=== PATIENT | male | born 1950 | race Caucasian/White ===

== ENCOUNTER 2021-03-04 10:45 | Inpatient (IN) | payer OTHER, SELFPAY ==
--- NOTE | ~2021-03-04 | CT_ITS ---
EXAMINATION: CT ABDOMEN AND PELVIS WITHOUT CONTRAST CLINICAL INFORMATION: Question small bowel obstruction. COMPARISON: None TECHNIQUE: Multidetector volumetric imaging was performed from the superior aspect of the liver through the pubic symphysis. Sagittal and coronal reformatted images were obtained on the technologist's workstation. This CT examination was performed using dose optimization techniques as appropriate, variously including the following: *Automated exposure control *Adjustment of mA and/or kV according to patient size (this includes techniques or standardized protocols for targeted exams where dose is matched to indication/reason for exam; i.e. extremities or head) *Use of iterative reconstruction technique DLP: 1134 mGy-cm FINDINGS: LUNG BASES: There is mild bibasilar dependent hypoaeration. There are minimal bilateral pleural effusions. There is a very small pericardial effusion. LIVER, GALLBLADDER, AND BILIARY TREE: The liver is normal in size, shape, and attenuation. Within hepatic segment 4A (14:119), a 1.5 cm cyst is seen with precontrast Hounsfield value of 8.3 units. No biliary ductal dilatation is present. There is a large 3.7 x 2.3 cm gallstone, without gallbladder wall thickening, or obvious pericholecystic inflammatory change. PANCREAS: Unremarkable. SPLEEN: Unremarkable. ADRENAL GLANDS: Unremarkable. KIDNEYS AND URETERS: The kidneys are normal in size, shape, and attenuation. No hydronephrosis, hydroureter, or calculi seen. A 2.2 cm cyst is seen in the mid right kidney, with precontrast Hounsfield value of -3.1 units (13:32). Arising exophytically from the upper pole of the left kidney is a 2.3 cm round mass versus hemorrhagic/proteinaceous cyst, with precontrast Hounsfield value of 38.2 units. At the lower pole of the left kidney (3:37), a 9 mm cyst is seen with precontrast Hounsfield value of -7.4 units. No perinephric stranding. BLADDER: Decompressed and otherwise unremarkable. GASTROINTESTINAL TRACT: There is a large amount of stool in the rectum, suggesting possible impaction. No obstruction, free intraperitoneal air or abscess is seen. There is no focal bowel wall thickening. No significant diverticulosis or diverticulitis is seen. The vermiform appendix appears normal. ABDOMINAL WALL: There are small fat-containing bilateral inguinal hernias. LYMPH NODES: Normal. VASCULAR: There is mild aortic atherosclerotic calcification. No abdominal aortic aneurysm is seen. PELVIC VISCERA: The prostate and seminal vesicles are unremarkable. OSSEOUS STRUCTURES: There is multi-level thoracolumbar spondylosis. A small sclerotic bone island is seen posteriorly within the L3-L4 vertebral body. No acute or aggressive osseous abnormality seen. CT/CT abdomen pelvis wo con IMPRESSION: 1. Findings suggest possible rectal fecal impaction. No bowel obstruction, free intracranial air or abscess is seen. This no focal bowel wall thickening. No appendicitis or diverticulitis is seen. 2. No urinary calculus or obstructive uropathy is seen bilaterally. 3. There are low-attenuation bilateral renal cysts, and a further 2.3 cm intermediate attenuation mass versus cyst is seen arising exophytically from the upper pole of the left kidney. Recommend further evaluation with ultrasound or MRI to characterize as cystic or solid and exclude the possibility of neoplasm. 4. There is cholelithiasis. 5. No abdominopelvic mass, free fluid or lymphadenopathy is seen. 6. There are minimal bilateral pleural effusions, and a very small pericardial effusion is seen.
--- NOTE | ~2021-03-04 | CT_ITS ---
EXAMINATION: CT HEAD WITHOUT CONTRAST CLINICAL INFORMATION: Question seizure. COMPARISON: CT brain dated 04/06/2017. TECHNIQUE: Contiguous axial imaging was performed from the skull base to vertex without intravenous administration of contrast. Multiplanar reformatted images are submitted. This CT examination was performed using dose optimization techniques as appropriate, variously including the following: *Automated exposure control *Adjustment of mA and/or kV according to patient size (this includes techniques or standardized protocols for targeted exams where dose is matched to indication/reason for exam; i.e. extremities or head) *Use of iterative reconstruction technique DLP: 630 mGy-cm FINDINGS: There is no evidence of acute intracranial hemorrhage or territorial infarction. No abnormal mass effect or midline shift is seen. [place] to white matter differentiation is well preserved. No extra-axial fluid collections are identified. There is proportionate mild ventriculomegaly and mild sulcal widening, commensurate with advanced age. There is mild patchy low attenuation change in the periventricular white matter spaces. The osseous structures and soft tissues are normal. There is mild mucosal thickening of the left sphenoid sinus chamber. The mastoid air cells are well aerated and clear. CT/CT head/brain wo con IMPRESSION: 1. No acute intracranial pathology. 2. There is mild patchy low attenuation change in the periventricular white matter spaces, commonly associated with chronic microangiopathy. 3. There is mild sphenoid sinusitis.
--- NOTE | ~2021-03-04 | CT_ITS ---
EXAMINATION: CT CHEST WITHOUT CONTRAST CLINICAL INFORMATION: Clinical question of pneumonia. COMPARISON: Chest radiograph dated 05/16/2018. TECHNIQUE: Multidetector volumetric CT imaging of the chest was done. Axial MIP volume rendering provided. Sagittal and coronal reformatted images were obtained. This CT examination was performed using dose optimization techniques as appropriate, variously including the following: *Automated exposure control *Adjustment of mA and/or kV according to patient size (this includes techniques or standardized protocols for targeted exams where dose is matched to indication/reason for exam; i.e. extremities or head) *Use of iterative reconstruction technique DLP: 1134 mGy-cm FINDINGS: NURSE RN BSN: The lungs are grossly clear. LUNGS: Within the superior segment of the right lower lobe (2:227), a 3 mm noncalcified nodule is seen. Within the anterior segment of the left upper lobe (9:75), there is a small grouping of 2-3 mm noncalcified nodules, with tree-in-bud arrangement. There is no mass, focal infiltrate or groundglass opacity. There are foci of linear scar/subsegmental atelectasis within the bilateral lower lobes and, to a lesser extent, centrally within the left upper lobe. No generalized increase is seen in peripheral interlobular septal markings. No significant bleb or bullous formation is seen. There is mild small airway thickening. The central airways appear patent. MEDIASTINUM: The thyroid is unremarkable. No thoracic aortic aneurysm is seen. There is mild atherosclerotic calcification of the thoracic aorta. No mediastinal or hilar lymphadenopathy is seen. There is a very small pericardial effusion. PLEURA: There are trace bilateral pleural effusions. No pleural mass or thickening is seen. AXILLA: No lymphadenopathy. OSSEOUS STRUCTURES: There is multi-level marked thoracic spondylosis, with an appearance suggesting possible DISH (diffuse idiopathic skeletal hyperostosis). No acute or aggressive osseous abnormality seen. CT/CT chest wo con IMPRESSION: 1. Tiny bilateral noncalcified lung nodules are seen, as above. Nodules within the anterior segment of the left upper lobe show a tree-in-bud arrangement, and there is small airway thickening, together suggesting small airways disease related to an infectious or inflammatory etiology. Please correlate clinically. According to the UPDATED 2017 Fleischner Society recommendations, the advised follow-up imaging for solid nodules < 6 mm is: LOW RISK PATIENT: No routine follow-up. HIGH RISK PATIENT: Optional CT at 12 months. 2. There are bilateral foci of linear scar/subsegmental atelectasis, for which continued attention on follow-up is recommended. 3. No thoracic lymphadenopathy is seen. There are trace bilateral pleural effusions. 4. Skeletal findings suggest possible DISH.
[2021-03-04 10:50] VITALS: BP 116/72; PULSE 72; RESP 18; O2SAT 95; BMI 20.5
[2021-03-04 11:13] LABS: Glucose, Whole Blood 144 mg/dL (60-115)
--- NOTE | 2021-03-04 11:27 | ECG_ITS ---
Test Reason : SEIZURE Blood Pressure : / mmHG Vent. Rate : 059 BPM Atrial Rate : 059 BPM P-R Int : 172 ms QRS Dur : 144 ms QT Int : 462 ms P-R-T Axes : 036 074 055 degrees QTc Int : 457 ms Sinus bradycardia Right bundle branch block Abnormal ECG When compared with ECG of 26-MAR-2020 23:46, No significant change was found Referred By: Ralph Campos Electronically Signed By:MIGNON CORRALES
--- NOTE | 2021-03-04 11:31 | ED.GENADULT ---
HPI - General Adult General Chief complaint: Seizure Stated complaint: seizure Time Seen by Provider: 03/04/21 11:10 Source: family Mode of arrival: ambulatory Limitations: no limitations History of Present Illness HPI narrative: Patient presents to the ED for possible seizure. As per daughter she states her sister informed her that while patient was is being fed patient stated violently shaking to the side and shaked even more. Daughter states ptient was talking the whole time while shaking. Daughter states patient at baseline has episode of shaking. Daughter denies father having history of seizures. Daughter states patient has severe dementia and at baseline he is totally confused and incoherent. Related Data Home Medications Medication Instructions Recorded Confirmed amlodipine 5 mg tablet 5 mg PO DAILY 03/04/21 03/04/21 cholecalciferol (vitamin D3) 50 50 mcg PO DAILY 03/04/21 03/04/21 mcg (2,000 unit) tablet cyanocobalamin (vitamin B-12) 500 500 mcg PO DAILY 03/04/21 03/04/21 mcg tablet donepezil 10 mg tablet 10 mg PO DAILY 03/04/21 03/04/21 lorazepam 0.5 mg tablet 0.5 mg PO DAILY PRN 03/04/21 03/04/21 melatonin 10 mg tablet 10 mg PO DAILY PRN 03/04/21 03/04/21 melatonin 5 mg tablet 10 mg PO BEDTIME 03/04/21 03/04/21 mirtazapine 30 mg tablet 30 mg PO BEDTIME 03/04/21 03/04/21 polyethylene glycol 3350 17 17 g PO DAILY PRN 03/04/21 03/04/21 gram/dose oral powder (Miralax) quetiapine 25 mg tablet 25 mg PO TID PRN 03/04/21 03/04/21 sertraline 20 mg/mL oral 100 mg PO DAILY 03/04/21 03/04/21 concentrate (Zoloft) simvastatin 40 mg tablet 20 mg PO DAILY 03/04/21 03/04/21 Previous Rx's Medication Instructions Recorded amoxicillin 875 mg-potassium 1 tab PO Q12H 5 Days #10 tab 03/04/21 clavulanate 125 mg tablet (Augmentin) doxycycline hyclate 100 mg capsule 100 mg PO BID 7 Days #14 cap 03/04/21 Allergies Allergy/AdvReac Type Severity Reaction Status Date / Time No Known Allergies Allergy Verified 03/04/21 10:55 [No Known Allergies*] [facility] Past Medical History Medical History (Updated 03/07/21 @ 08:13 by RAJESH Brown) Dementia Hyperlipidemia Hypertension Social History Social History Household Members: Spouse and Family Housing: Apartment Do you presently have visiting nurse or other home services: Yes (per daughter, forestry hunter and house visits) Patient Tobacco Use Status: Never used Tobacco Use of substances other than those prescribed or required for medical reasons: No Currently Displaying Signs/Symptoms of Drug Intoxication Withdrawal: No Advance Directives: No Advance Directives Information Provided: Yes Do you have thoughts of harming others: None Do you have a plan to hurt others: No Plan Recently lost weight without trying: Unsure Eating poorly because of decreased appetite: No Nutrition Risks: On aspiration precautions service: Yes Current occupational status: retired Physical Exam Vital Signs: Vital Signs: Last Vital Signs Temp 97.3 F 03/07/21 03:05 Pulse 71 03/07/21 03:05 Resp 16 03/07/21 03:05 BP 140/79 H 03/07/21 03:05 Pulse Ox 95 03/07/21 03:05 Body Mass Index 20.5 Const: Other: dementia General: cooperative, healthy appearing, comfortable and no acute distress HENMT: Head: Yes normal to inspection, Yes No palpable skull fracture present, Yes normocephalic and Yes atraumatic Eyes: General: appearance normal, both eyes and all related structures Neck: Neck: Yes normal visual inspection, Yes full ROM, Yes no lymphadenopathy, Yes no meningeal signs, Yes trachea midline, Yes supple and No tender Chest: Chest palpation & inspection: normal inspection of the chest and normal palpation of entire chest wall Resp: Effort & Inspection: normal respiratory effort and able to speak in complete sentences Auscultation: clear to auscultation bilaterally Cardio: Jugular venous distension: no JVD Heart sounds: S1 normal heart sound present and S2 normal heart sound present GI: Inspection: Yes normal to inspection and No abdominal wall ecchymosis Palpation (GI): Soft to palpation, not firm, nontender and no guarding : General: No CVA tenderness and Yes no CVA tenderness Back/Spine/Pelvis: Back: no CVA tenderness, No CVA tenderness and No back tenderness Skin: General skin exam: no rashes or lesions noted and elasticity normal Neuro: Other: At baseline patient is confused and incorherent. General: no meningeal signs and CN's II-XI intact bilaterally Extrem: General: Yes normal to inspection and Yes full ROM Psych: Other: severe dementia Appearance: grossly normal and well kempt Course Course Course Narrative: Patient will have medical evaluation, but very unlikely patient had a seizure. patient was shaking while awake and family states patient at baseling usually shakes. Reevaluation(s) Reevaluation #1: EKG is negative negative for stemi. Head CT came back negatvie. UA negative for UTI. Troponin is negative. Electrolytes are normal. Patient has WBC of only 12. Patient never had seizure during ED visit. patient is at baseline mentally in the ED as per family. Chest CT shows pneunibua and Abdominal CT scan shows fecal impaction. Case was discussed with Dr. Hall, hospitatlist, and he states patient does not need to be admitted and does not believe patient had seizure. He states history and physical exam does not indicate seiure. He states patient can be discharged with PO antibiotics for pneumonia. Will do fecal disimpaciton. Time: 14:31 Reevaluation #2: Nurse informed me that patient had a large bowel movment after abdominal CT scan was done. Patient will be discharged Time: 15:02 Reevaluation #3: Patient had a seizure before discharge and was given ativan and placed on oxygen. Hospitalist informed and accepted case for admission. lacitc acid not due to pneumonia, but due to lactic being drawn after patient had seizure. Time: 15:33 Medical Decision Making [facility] Narrative Medical decision making narrative: Pneumonia, Seizure Lab Data Result diagrams: 03/07/21 06:11 03/07/21 06:11 Labs: Lab Results 03/04/21 03/04/21 03/04/21 Range/Units 11:10 11:53 12:54 WBC 12.2 H (4.8-10.8) X10*3/uL RBC 5.50 (4.60-5.80) X10*6/uL Hgb 15.1 (14.0-18.0) g/dl Hct 44.9 (42-52) % MCV 81.6 (80-98) fL MCH 27.5 (27.0-33.0) pg MCHC 33.6 (31.0-36.0) g/dl RDW 15.2 (11.0-16.0) % Plt Count 202 (160-400) X10*3/uL MPV 9.5 (9.4-12.4) fL Immature Gran % (Auto) 1.1 H (0.0-0.4) % Neut % (Auto) 89.3 H (45-73) % Lymph % (Auto) 5.6 L (20-40) % [place] % (Auto) 3.6 (2-11) % Eos % (Auto) 0.2 (0-4) % Baso % (Auto) 0.2 (0-2) % Lymph # (Auto) 0.7 L (1.2-4.9) X10*3/uL [place] # (Auto) 0.4 (0.1-1.2) X10*3/uL Eos # (Auto) 0.0 (0.0-0.4) X10*3/uL Baso # (Auto) 0.0 (0.0-0.2) X10*3/uL Abs Immat Gran (auto) 0.13 H (0.00-0.03) X10*3/uL Absolute Neuts (auto) 10.9 H (2.0-8.3) X10*3/uL Absolute Nucleated RBC 0.000 (0.0-0.012) X10*3/uL Nucleated RBC % (auto) 0.0 (0.0-0.2) /100WBC Sodium (135-145) mmol/L Potassium (3.3-5.1) mmol/L Chloride (96-108) mmol/L Carbon Dioxide (22-29) mmol/L Anion Gap (12-20) BUN (9-16) mg/dL Creatinine (0.5-1.4) mg/dL Estim Creat Clear Calc Estimated GFR POC Glucose 144 H (60-115) mg/dL Random Glucose (60-115) mg/dL Lactic Acid (0.5-2.0) mmol/L Calcium (8.4-10.2) mg/dL Magnesium (1.6-2.6) mg/dL Total Bilirubin (0.0-1.0) mg/dL Direct Bilirubin (0.0-0.5) mg/dL AST (5-37) U/L ALT (0-40) U/L Alkaline Phosphatase (39-117) U/L Total Creatine Kinase (38-174) U/L Troponin I High Sens (<3.5-35.0) ng/L Total Protein (6.5-8.0) g/dL Albumin (3.5-5.0) g/dL Urine Color STRAW Urine Appearance CLEAR Urine pH 6.0 (5.0-8.0) Ur Specific [place] >= 1.030 H (1.005-1.025) Urine Protein 1+ H (NEG-TRACE) MG/DL Urine Glucose (UA) NEG (NEG) MG/DL Urine Ketones NEG (NEG) MG/DL Urine Blood TRACE (NEG) Urine Nitrite NEG (NEG) Ur Leukocyte Esterase NEG (NEG) Urine RBC 0-2 (0) /HPF Urine WBC 0-2 (0-4) /HPF Ur Squamous Epith Cells NONE /LPF Amorphous Sediment 3+ /LPF Urine Bacteria NONE /LPF Urine Mucus TRACE /LPF COVID-19 ([facility]) (Negative) COVID-19 Clin Com 03/04/21 03/04/21 03/04/21 Range/Units 12:54 12:54 12:54 WBC (4.8-10.8) X10*3/uL RBC (4.60-5.80) X10*6/uL Hgb (14.0-18.0) g/dl Hct (42-52) % MCV (80-98) fL MCH (27.0-33.0) pg MCHC (31.0-36.0) g/dl RDW (11.0-16.0) % Plt Count (160-400) X10*3/uL MPV (9.4-12.4) fL Immature Gran % (Auto) (0.0-0.4) % Neut % (Auto) (45-73) % Lymph % (Auto) (20-40) % [place] % (Auto) (2-11) % Eos % (Auto) (0-4) % Baso % (Auto) (0-2) % Lymph # (Auto) (1.2-4.9) X10*3/uL [place] # (Auto) (0.1-1.2) X10*3/uL Eos # (Auto) (0.0-0.4) X10*3/uL Baso # (Auto) (0.0-0.2) X10*3/uL Abs Immat Gran (auto) (0.00-0.03) X10*3/uL Absolute Neuts (auto) (2.0-8.3) X10*3/uL Absolute Nucleated RBC (0.0-0.012) X10*3/uL Nucleated RBC % (auto) (0.0-0.2) /100WBC Sodium 145 (135-145) mmol/L Potassium 3.5 (3.3-5.1) mmol/L Chloride 113 H (96-108) mmol/L Carbon Dioxide 22 (22-29) mmol/L Anion Gap 14 (12-20) BUN 21 H (9-16) mg/dL Creatinine 1.01 (0.5-1.4) mg/dL Estim Creat Clear Calc 53.1 Estimated GFR > 60 POC Glucose (60-115) mg/dL Random Glucose 117 H (60-115) mg/dL Lactic Acid (0.5-2.0) mmol/L Calcium 9.2 (8.4-10.2) mg/dL Magnesium 2.4 (1.6-2.6) mg/dL Total Bilirubin 0.3 (0.0-1.0) mg/dL Direct Bilirubin 0.2 (0.0-0.5) mg/dL AST 16 (5-37) U/L ALT 19 (0-40) U/L Alkaline Phosphatase 110 (39-117) U/L Total Creatine Kinase 45 (38-174) U/L Troponin I High Sens (<3.5-35.0) ng/L Total Protein 7.0 (6.5-8.0) g/dL Albumin 4.2 (3.5-5.0) g/dL Urine Color Urine Appearance Urine pH (5.0-8.0) Ur Specific [place] (1.005-1.025) Urine Protein (NEG-TRACE) MG/DL Urine Glucose (UA) (NEG) MG/DL Urine Ketones (NEG) MG/DL Urine Blood (NEG) Urine Nitrite (NEG) Ur Leukocyte Esterase (NEG) Urine RBC (0) /HPF Urine WBC (0-4) /HPF Ur Squamous Epith Cells /LPF Amorphous Sediment /LPF Urine Bacteria /LPF Urine Mucus /LPF COVID-19 ([facility]) (Negative) COVID-19 Clin Com 03/04/21 03/04/21 03/04/21 Range/Units 12:54 15:51 15:56 WBC (4.8-10.8) X10*3/uL RBC (4.60-5.80) X10*6/uL Hgb (14.0-18.0) g/dl Hct (42-52) % MCV (80-98) fL MCH (27.0-33.0) pg MCHC (31.0-36.0) g/dl RDW (11.0-16.0) % Plt Count (160-400) X10*3/uL MPV (9.4-12.4) fL Immature Gran % (Auto) (0.0-0.4) % Neut % (Auto) (45-73) % Lymph % (Auto) (20-40) % [place] % (Auto) (2-11) % Eos % (Auto) (0-4) % Baso % (Auto) (0-2) % Lymph # (Auto) (1.2-4.9) X10*3/uL [place] # (Auto) (0.1-1.2) X10*3/uL Eos # (Auto) (0.0-0.4) X10*3/uL Baso # (Auto) (0.0-0.2) X10*3/uL Abs Immat Gran (auto) (0.00-0.03) X10*3/uL Absolute Neuts (auto) (2.0-8.3) X10*3/uL Absolute Nucleated RBC (0.0-0.012) X10*3/uL Nucleated RBC % (auto) (0.0-0.2) /100WBC Sodium (135-145) mmol/L Potassium (3.3-5.1) mmol/L Chloride (96-108) mmol/L Carbon Dioxide (22-29) mmol/L Anion Gap (12-20) BUN (9-16) mg/dL Creatinine (0.5-1.4) mg/dL Estim Creat Clear Calc Estimated GFR POC Glucose (60-115) mg/dL Random Glucose (60-115) mg/dL Lactic Acid 12.4 H* (0.5-2.0) mmol/L Calcium (8.4-10.2) mg/dL Magnesium (1.6-2.6) mg/dL Total Bilirubin (0.0-1.0) mg/dL Direct Bilirubin (0.0-0.5) mg/dL AST (5-37) U/L ALT (0-40) U/L Alkaline Phosphatase (39-117) U/L Total Creatine Kinase (38-174) U/L Troponin I High Sens < 3.5 (<3.5-35.0) ng/L Total Protein (6.5-8.0) g/dL Albumin (3.5-5.0) g/dL Urine Color Urine Appearance Urine pH (5.0-8.0) Ur Specific [place] (1.005-1.025) Urine Protein (NEG-TRACE) MG/DL Urine Glucose (UA) (NEG) MG/DL Urine Ketones (NEG) MG/DL Urine Blood (NEG) Urine Nitrite (NEG) Ur Leukocyte Esterase (NEG) Urine RBC (0) /HPF Urine WBC (0-4) /HPF Ur Squamous Epith Cells /LPF Amorphous Sediment /LPF Urine Bacteria /LPF Urine Mucus /LPF COVID-19 ([facility]) Negative (Negative) COVID-19 Clin Com See Note ECG Data Interpretation: Sinus Bradycardia. Right Bundle Branch Block. Discharge Plan Discharge Clinical Impression: Pneumonia, Seizure Patient Disposition: Admitted As Inpatient Interventions: Admission Worksheet (ED) Last Done: 03/04/21 18:26 Discharge Date/Time: 03/04/21 18:27
[2021-03-04 11:34] VITALS: BP 112/74; PULSE 66; RESP 18; O2SAT 100
--- NOTE | 2021-03-04 11:56 | PC.NURSE ---
patient incontinent of stool and urine- with help of technical support internship patient was cleaned, repositioned and bed sheets changed
[2021-03-04 12:14] LABS: Glucose Urine UA NEG (NEG); Leukocyte Esterase Urine NEG (NEG); Nitrite Urine NEG (NEG); Specific Gravity - Urine >= 1.030 (1.005-1.025); UACC Culture Trigger NO; Urine Blood TRACE (NEG); Urine Ketones NEG (NEG); Urine Protein 1+ MG/DL (NEG-TRACE)
[2021-03-04 12:17] LABS: Appearance Urine CLEAR; Color Urine STRAW
[2021-03-04 12:24] LABS: Amorphous Sediment Urine 3+ /LPF; Mucus Urine TRACE /LPF; RBC Urine 0-2 /HPF (0); WBC Urine 0-2 /HPF (0-4)
[2021-03-04 12:58] LABS: MANUAL DIFF FLAG NO
[2021-03-04 13:00] LABS: Basophils Percent Auto 0.2 % (0-2); Eosinophils Percent Auto 0.2 % (0-4); Hematocrit 44.9 % (42-52); Hemoglobin 15.1 g/dl (14.0-18.0); Imm Gran Abs Auto 0.13 X10*3/uL (0.00-0.03); Imm Gran Pct Auto 1.1 % (0.0-0.4); Lymphocytes Absolute Auto 0.7 X10*3/uL (1.2-4.9); Lymphocytes Percent Auto 5.6 % (20-40); Mean Corpuscular HGB Conc 33.6 g/dl (31.0-36.0); Mean Corpuscular Hemoglobin 27.5 pg (27.0-33.0); Mean Corpuscular Volume 81.6 fL (80-98); Mean Platelet Volume 9.5 fL (9.4-12.4); Monocytes Absolute Auto 0.4 X10*3/uL (0.1-1.2); Monocytes Percent Auto 3.6 % (2-11); Neutrophils Absolute Auto 10.9 X10*3/uL (2.0-8.3); Neutrophils Percent Auto 89.3 % (45-73); Platelet Count 202 X10*3/uL (160-400); Red Cell Distribution Width 15.2 % (11.0-16.0); White Blood Count 12.2 X10*3/uL (4.8-10.8)
[2021-03-04 13:39] LABS: Anion Gap 14 (12-20); Blood Urea Nitrogen 21 mg/dL (9-16); Calcium 9.2 mg/dL (8.4-10.2); Carbon Dioxide 22 mmol/L (22-29); Chloride 113 mmol/L (96-108); Creatinine Clr Calc Pharmacy 53.1; Estimated Glomerular Filt Rate > 60; Glucose Random 117 mg/dL (60-115); Potassium 3.5 mmol/L (3.3-5.1); Sodium 145 mmol/L (135-145)
[2021-03-04 13:40] LABS: Alanine Aminotransferase 19 U/L (0-40); Albumin Level 4.2 g/dL (3.5-5.0); Alkaline Phosphatase 110 U/L (39-117); Aspartate Amino Transferase 16 U/L (5-37); Bilirubin Direct 0.2 mg/dL (0.0-0.5); Bilirubin Total 0.3 mg/dL (0.0-1.0)
[2021-03-04 13:42] LABS: Magnesium 2.4 mg/dL (1.6-2.6)
[2021-03-04 13:45] LABS: Troponin-I High Sensitivity < 3.5 ng/L (<3.5-35.0)
[2021-03-04 15:25] VITALS: BP 173/77; PULSE 107; RESP 22; O2SAT 97
[2021-03-04] MEDS: LORazepam 2 MG/ML VIAL IVPUSH (15:27)
[2021-03-04] MEDS: cefTRIAXone sodium 1 GM in 0.9 % Sodium Chloride 50 ML IV (16:03)
[2021-03-04 16:20] LABS: COVID-19 Test Negative (Negative); IDNOW Serial# 9DD0AD1C
[2021-03-04 16:21] LABS: Lactic Acid 12.4 mmol/L (0.5-2.0)
--- NOTE | 2021-03-04 16:27 | P.HPHOSP_ITS ---
History of Present Illness Date of Service: 03/04/21 Chief Complaint: seizure 70 year old man presenting after seizure home. According to the patient's daughter who was present during the interview the patient was being fed by his other daughter and suddenly became very stiff and started shaking. She is unsure if there was any loss of bowel or bladder. He was brought to the ER. Recently had not been sick. He has a history of dementia, requires full care therefore he is unable to give any information during the interview. It appeared on CT scan that the patient had a pneumonia and he was going to be sent home on oral antibiotics however just prior to that he had a tonic-clonic seizure in the ER and was given lorazepam and Keppra. His lactic acid was elevated at 0.4 and this was likely related to the seizure as well as he tachycardia tachypnea and hypertension at that time. Just prior to that the patient had not presented with any fever tachycardia or hypertension. He was also started on Rocephin and azithromycin for seizure. Will be admitted for further management and treatment of acute seizure and community-acquired pneumonia. Review of Systems Review of Systems: Yes Unobtainable due to mental status [facility] Medical History (Updated 03/04/21 @ 16:32 by Latonya Smith NP) Dementia Hyperlipidemia Hypertension Pertinent family history: No cardiac disease Social History Advance Directives: No Advance Directives Information Provided: Yes Meds Allergies Allergy/AdvReac Type Severity Reaction Status Date / Time No Known Allergies Allergy Verified 03/04/21 10:55 [No Known Allergies*] Active Medications: Current Medications Generic Name Dose Route Start Last Admin Trade Name Freq PRN Reason Stop Dose Admin Azithromycin 500 mg/ Sodium 250 mls @ 125 mls/hr 03/04/21 15:39 Chloride IV 03/04/21 17:38 ONCE ONE Home Medications Medication Instructions Recorded Confirmed Last Taken Type amlodipine 5 mg tablet 5 mg PO DAILY 03/04/21 03/04/21 Unknown History cholecalciferol (vitamin D3) 50 50 mcg PO DAILY 03/04/21 03/04/21 Unknown History mcg (2,000 unit) tablet cyanocobalamin (vitamin B-12) 500 500 mcg 03/04/21 Unknown History mcg tablet donepezil 10 mg tablet 10 mg PO DAILY 03/04/21 03/04/21 Unknown History mirtazapine 30 mg tablet 30 mg PO DAILY 03/04/21 03/04/21 Unknown History quetiapine 25 mg tablet 25 mg PO DAILY 03/04/21 03/04/21 Unknown History simvastatin 40 mg tablet 40 mg PO DAILY 03/04/21 03/04/21 Unknown History Physical Exam Vital Signs and Narrative: Vital Signs: Last Vital Signs Pulse 107 H 03/04/21 15:25 Resp 22 H 03/04/21 15:25 BP 173/77 H 03/04/21 15:25 Pulse Ox 97 03/04/21 15:25 Body Mass Index 20.5 Patient lying in bed, mumbling, reaching for his oxygen mask head is normocephalic atraumatic eyes pupils are PERRLA sclera is anicteric mouth throat mucous membranes are intact and moist neck is supple no lymphadenopathy, no JVD noted lung sounds are clear to auscultation heart regular rate rhythm, clear S1, S2 positive bowel sounds, abdomen is soft, nontender neuro patient is alert, disoriented Results Labs CBC and Chem 7: 03/04/21 12:54 03/04/21 12:54 Labs: Laboratory Results - last 24 hr 03/04/21 03/04/21 03/04/21 11:10 11:53 12:54 MCV 81.6 MCH 27.5 MCHC 33.6 RDW 15.2 Plt Count 202 MPV 9.5 Immature Gran % (Auto) 1.1 H Neut % (Auto) 89.3 H Lymph % (Auto) 5.6 L [place] % (Auto) 3.6 Eos % (Auto) 0.2 Baso % (Auto) 0.2 Lymph # (Auto) 0.7 L [place] # (Auto) 0.4 Eos # (Auto) 0.0 Baso # (Auto) 0.0 Abs Immat Gran (auto) 0.13 H Absolute Neuts (auto) 10.9 H Absolute Nucleated RBC 0.000 Nucleated RBC % (auto) 0.0 Anion Gap Estim Creat Clear Calc Estimated GFR POC Glucose 144 H Random Glucose Lactic Acid Calcium Magnesium Total Bilirubin Direct Bilirubin AST ALT Alkaline Phosphatase Total Creatine Kinase Troponin I High Sens Total Protein Albumin Urine Color STRAW Urine Appearance CLEAR Urine pH 6.0 Ur Specific [place] >= 1.030 H Urine Protein 1+ H Urine Glucose (UA) NEG Urine Ketones NEG Urine Blood TRACE Urine Nitrite NEG Ur Leukocyte Esterase NEG Urine RBC 0-2 Urine WBC 0-2 Ur Squamous Epith Cells NONE Amorphous Sediment 3+ Urine Bacteria NONE Urine Mucus TRACE COVID-19 ([facility]) COVID-19 Clin Com 03/04/21 03/04/21 03/04/21 12:54 12:54 12:54 MCV MCH MCHC RDW Plt Count MPV Immature Gran % (Auto) Neut % (Auto) Lymph % (Auto) [place] % (Auto) Eos % (Auto) Baso % (Auto) Lymph # (Auto) [place] # (Auto) Eos # (Auto) Baso # (Auto) Abs Immat Gran (auto) Absolute Neuts (auto) Absolute Nucleated RBC Nucleated RBC % (auto) Anion Gap 14 Estim Creat Clear Calc 53.1 Estimated GFR > 60 POC Glucose Random Glucose 117 H Lactic Acid Calcium 9.2 Magnesium 2.4 Total Bilirubin 0.3 Direct Bilirubin 0.2 AST 16 ALT 19 Alkaline Phosphatase 110 Total Creatine Kinase 45 Troponin I High Sens Total Protein 7.0 Albumin 4.2 Urine Color Urine Appearance Urine pH Ur Specific [place] Urine Protein Urine Glucose (UA) Urine Ketones Urine Blood Urine Nitrite Ur Leukocyte Esterase Urine RBC Urine WBC Ur Squamous Epith Cells Amorphous Sediment Urine Bacteria Urine Mucus COVID-19 ([facility]) COVID-19 Clin Com 03/04/21 03/04/21 03/04/21 12:54 15:51 15:56 MCV MCH MCHC RDW Plt Count MPV Immature Gran % (Auto) Neut % (Auto) Lymph % (Auto) [place] % (Auto) Eos % (Auto) Baso % (Auto) Lymph # (Auto) [place] # (Auto) Eos # (Auto) Baso # (Auto) Abs Immat Gran (auto) Absolute Neuts (auto) Absolute Nucleated RBC Nucleated RBC % (auto) Anion Gap Estim Creat Clear Calc Estimated GFR POC Glucose Random Glucose Lactic Acid 12.4 H* Calcium Magnesium Total Bilirubin Direct Bilirubin AST ALT Alkaline Phosphatase Total Creatine Kinase Troponin I High Sens < 3.5 Total Protein Albumin Urine Color Urine Appearance Urine pH Ur Specific [place] Urine Protein Urine Glucose (UA) Urine Ketones Urine Blood Urine Nitrite Ur Leukocyte Esterase Urine RBC Urine WBC Ur Squamous Epith Cells Amorphous Sediment Urine Bacteria Urine Mucus COVID-19 ([facility]) Negative COVID-19 Clin Com See Note Imaging Radiologist's Impressions: Impressions Head CT 03/04/21 11:14 IMPRESSION: 1. No acute intracranial pathology. 2. There is mild patchy low attenuation change in the periventricular white matter spaces, commonly associated with chronic microangiopathy. 3. There is mild sphenoid sinusitis. Abdomen/Pelvis CT 03/04/21 11:26 IMPRESSION: 1. Findings suggest possible rectal fecal impaction. No bowel obstruction, free intracranial air or abscess is seen. This no focal bowel wall thickening. No appendicitis or diverticulitis is seen. 2. No urinary calculus or obstructive uropathy is seen bilaterally. 3. There are low-attenuation bilateral renal cysts, and a further 2.3 cm intermediate attenuation mass versus cyst is seen arising exophytically from the upper pole of the left kidney. Recommend further evaluation with ultrasound or MRI to characterize as cystic or solid and exclude the possibility of neoplasm. 4. There is cholelithiasis. 5. No abdominopelvic mass, free fluid or lymphadenopathy is seen. 6. There are minimal bilateral pleural effusions, and a very small pericardial effusion is seen. Chest CT 03/04/21 11:26 IMPRESSION: 1. Tiny bilateral noncalcified lung nodules are seen, as above. Nodules within the anterior segment of the left upper lobe show a tree-in-bud arrangement, and there is small airway thickening, together suggesting small airways disease related to an infectious or inflammatory etiology. Please correlate clinically. According to the UPDATED 2017 Fleischner Society recommendations, the advised follow-up imaging for solid nodules < 6 mm is: LOW RISK PATIENT: No routine follow-up. HIGH RISK PATIENT: Optional CT at 12 months. 2. There are bilateral foci of linear scar/subsegmental atelectasis, for which continued attention on follow-up is recommended. 3. No thoracic lymphadenopathy is seen. There are trace bilateral pleural effusions. 4. Skeletal findings suggest possible DISH. Assessment and Plan (1) Seizure: Status: Acute 70-year-old man with a history of dementia and mostly nonverbal admitted with new onset seizure and community-acquired pneumonia. Patient lives with his daughter and is full care. Unsure if seizure may have precipitated pna vs vice versa. Seizure. Appears to be new onset. No recent illness. Received Keppra and lorazepam in the ER Eeg Neurology consultation Seizure precautions Community-acquired pneumonia. Rocephin, azithromycin Supplemental oxygen as needed Follow cultures Lactic acidosis. Likely secondary to seizure not sepsis Received 30 mL/kg IV fluid bolus Follow Hypertension Continue amlodipine Dementia Continue Aricept Hyperlipidemia Continue statin DVT prophylaxis with Lovenox attending Dr. Servin Full code Quality Stroke Does the patient have a stroke diagnosis?: No VTE Prior VTE?: No VTE Risk Level:: Medical - moderate - high VTE Device Contraindication: Treatment Not Indicated VTE Drug Contraindication: N/A - Med Ordered
[2021-03-04] MEDS: Azithromycin 500 MG in 0.9 % Sodium Chloride 250 ML 125 MG IV (16:42)
[2021-03-04] MEDS: levETIRAcetam in NaCl (iso-os) 1,000 MG/100 ML PIGGYBACK 400 MG IV (16:42)
[2021-03-04] MEDS: 0.9 % Sodium Chloride 1,632.93 ML 1632.93 ML IV (16:47)
--- NOTE | 2021-03-04 16:49 | P.EN_ITS ---
Event Note Date of Service: 03/04/21 Event Note: Patient is status post seizure question possible, Patient is unable to provide history was taken why the assistant general manager. Physical exam: Cvs: [id number], [id number] , no murmur res: clear to auscultation ,no rhonchii or wheezing abd: no rebound or guarding ,nt, bs present. ext pulses present , no cyanosis neuro: moving extermities spontaneously Patient was given admission for seizure/question of mild pneumonia. Assessment and plan coordinated in APC note what is it Agree with plan Repeat lactic acid. Neuro check Seizure precaution Neuro evaluation Daughter has a recorded episode of a question seizure on her phone.
--- NOTE | 2021-03-04 17:07 | PC.NURSE ---
attempted to call report, nurse unable to take it per demolition worker
[2021-03-04 17:52] VITALS: BP 144/74; PULSE 105; RESP 18; TEMP 36.3; O2SAT 97
[2021-03-04 17:56] LABS: Reflex Lactate? Lactic Acid Added
[2021-03-04 18:32] LABS: Lactic Acid 2.9 mmol/L (0.5-2.0)
[2021-03-04 18:56] VITALS: BP 148/77; PULSE 89; RESP 18; TEMP 36.7; O2SAT 98
[2021-03-04 19:53] LABS: ~Lactic Acid-LAB USE ONLY 3.4 mmol/L (0.5-2.0)
[2021-03-04 19:54] LABS: Reflex Lactate? Lactic Acid Added
[2021-03-04 21:01] LABS: ~Lactic Acid-LAB USE ONLY 2.7 mmol/L (0.5-2.0)
[2021-03-04 21:15] LABS: Reflex Lactate? 2 Y
[2021-03-04 22:09] LABS: ~Lactic Acid-LAB USE ONLY 2.8 mmol/L (0.5-2.0)
[2021-03-04 22:26] LABS: Reflex Lactate? 2 Y
[2021-03-05] VITALS (7 sets, daily range): BP systolic 116–144; BP diastolic 57–97; PULSE 61–82; RESP 15–16; TEMP 36.6–37.4; O2SAT 94–100; BMI 20.5
[2021-03-05] MEDS: 0.9 % Sodium Chloride Flush 3 ML SYRINGE IVFLUSH ×4 (00:11→20:18)
[2021-03-05 06:28] LABS: MANUAL DIFF FLAG NO
[2021-03-05 06:36] LABS: Basophils Percent Auto 0.2 % (0-2); Eosinophils Percent Auto 0.2 % (0-4); Hematocrit 40.9 % (42-52); Hemoglobin 13.5 g/dl (14.0-18.0); Imm Gran Abs Auto 0.06 X10*3/uL (0.00-0.03); Imm Gran Pct Auto 0.6 % (0.0-0.4); Lymphocytes Absolute Auto 0.8 X10*3/uL (1.2-4.9); Lymphocytes Percent Auto 7.4 % (20-40); Mean Corpuscular Hemoglobin 27.5 pg (27.0-33.0); Mean Corpuscular Volume 83.3 fL (80-98); Mean Platelet Volume 9.7 fL (9.4-12.4); Monocytes Absolute Auto 0.7 X10*3/uL (0.1-1.2); Monocytes Percent Auto 6.4 % (2-11); Neutrophils Absolute Auto 9.2 X10*3/uL (2.0-8.3); Neutrophils Percent Auto 85.2 % (45-73); Platelet Count 196 X10*3/uL (160-400); Red Blood Count 4.91 X10*6/uL (4.60-5.80); Red Cell Distribution Width 15.4 % (11.0-16.0); White Blood Count 10.8 X10*3/uL (4.8-10.8)
[2021-03-05 07:23] LABS: Anion Gap 10 (12-20); Blood Urea Nitrogen 17 mg/dL (9-16); Carbon Dioxide 24 mmol/L (22-29); Chloride 115 mmol/L (96-108); Creatinine Clr Calc Pharmacy 52.6; Estimated Glomerular Filt Rate > 60; Glucose Random 92 mg/dL (60-115); Potassium 3.8 mmol/L (3.3-5.1); Sodium 145 mmol/L (135-145)
[2021-03-05 07:35] LABS: Calcium 8.6 mg/dL (8.4-10.2)
--- NOTE | 2021-03-05 09:24 | PC.NURSE ---
Skin assessment completed today. Patient has scratches to nose and face. Buttocks blanchable redness. Patient is turned every 2 hours. No other skin issues noted at this time.
--- NOTE | 2021-03-05 09:42 | P.CNNE_ITS ---
History of Present Illness Data of Consult Service Date: 03/05/21 Primary Care Provider: Unknown Physician HPI Reason for consult: New-onset seizure in a patient with dementia and pneumonia This is a 70-year-old man with advanced dementia and was unable to provide any useful information requires care by the family. He has recently developed pneumonia and was being fed by his family when he was witnessed to have a generalized tonic-clonic seizure. There is no previous history of seizures. He had a CT scan of the brain which shows age related to white matter microvascular disease but is otherwise unremarkable. He was given Ativan and Keppra. There has been no seizure recurrence. Review of Systems Review of Systems: Yes Unobtainable due to mental status PMFSH Past Medical History Medical History Dementia Hyperlipidemia Hypertension Family History Pertinent family history: No cardiac disease Social History Social History Household Members: Spouse and Family Housing: Apartment Do you presently have visiting nurse or other home services: Yes (per daughter, health information director and house visits) Patient Tobacco Use Status: Never used Tobacco Use of substances other than those prescribed or required for medical reasons: No Currently Displaying Signs/Symptoms of Drug Intoxication Withdrawal: No Advance Directives: No Advance Directives Information Provided: Yes Recently lost weight without trying: Unsure Eating poorly because of decreased appetite: No Nutrition Risks: On aspiration precautions Meds Allergies Allergy/AdvReac Type Severity Reaction Status Date / Time No Known Allergies Allergy Verified 03/04/21 10:55 [No Known Allergies*] Active Medications: Current Medications Generic Name Dose Route Start Last Admin Trade Name Freq PRN Reason Stop Dose Admin Acetaminophen 650 mg 03/04/21 16:42 Acetaminophen 325 Mg Tablet PO Q6H PRN Pain, Mild (Pain Scale 1-3) Amlodipine Besylate 5 mg 03/05/21 09:00 Amlodipine Besylate 5 Mg Tablet PO DAILY FIOR Protocol Atorvastatin Calcium 20 mg 03/05/21 09:00 Atorvastatin Calcium 20 Mg Tablet PO DAILY FIOR Donepezil HCl 10 mg 03/05/21 09:00 Donepezil Hcl 10 Mg Tablet PO DAILY FIOR Ceftriaxone Sodium 1 gm/ 50 mls @ 100 mls/hr 03/05/21 16:00 Sodium Chloride IV Q24H FIOR Azithromycin 500 mg/ Sodium 250 mls @ 125 mls/hr 03/05/21 16:00 Chloride IV Q24H FIOR Lorazepam 1 mg 03/04/21 16:42 Lorazepam 2 Mg/Ml Vial IVPUSH Q2H PRN seizure activity Ondansetron HCl 4 mg 03/04/21 16:42 Ondansetron Hcl 4 Mg/2 Ml Vial IVPUSH Q8H PRN Nausea and Vomiting Quetiapine Fumarate 25 mg 03/05/21 09:00 Quetiapine Fumarate 25 Mg Tablet PO DAILY [facility] Sodium Chloride 3 ml 03/05/21 00:00 03/05/21 00:11 0.9 % Sodium Chloride Flush 3 Ml Syringe IVFLUSH 3 ml QSHIFT [facility] Administration Vitamin D 50 mcg 03/05/21 09:00 Cholecalciferol (Vitamin D3) 25 Mcg Tablet PO DAILY [facility] Home Medications Medication Instructions Recorded Confirmed Last Taken Type amlodipine 5 mg tablet 5 mg PO DAILY 03/04/21 03/04/21 Unknown History cholecalciferol (vitamin D3) 50 50 mcg PO DAILY 03/04/21 03/04/21 Unknown History mcg (2,000 unit) tablet cyanocobalamin (vitamin B-12) 500 500 mcg PO DAILY 03/04/21 03/04/21 Unknown History mcg tablet donepezil 10 mg tablet 10 mg PO DAILY 03/04/21 03/04/21 Unknown History lorazepam 0.5 mg tablet 0.5 mg PO DAILY PRN 03/04/21 03/04/21 Unknown History melatonin 10 mg tablet 10 mg PO DAILY PRN 03/04/21 03/04/21 Unknown History melatonin 5 mg tablet 10 mg PO BEDTIME 03/04/21 03/04/21 Unknown History mirtazapine 30 mg tablet 30 mg PO BEDTIME 03/04/21 03/04/21 Unknown History polyethylene glycol 3350 17 17 g PO DAILY PRN 03/04/21 03/04/21 Unknown History gram/dose oral powder (Miralax) quetiapine 25 mg tablet 25 mg PO TID PRN 03/04/21 03/04/21 Unknown History sertraline 20 mg/mL oral 100 mg PO DAILY 03/04/21 03/04/21 Unknown History concentrate (Zoloft) simvastatin 40 mg tablet 20 mg PO DAILY 03/04/21 03/04/21 Unknown History Physical Exam Vital Signs: Vital Signs: Last Vital Signs Temp 98.4 F 03/05/21 07:31 Pulse 64 08/18/21 07:31 Resp 15 03/05/21 07:31 BP 116/62 03/05/21 07:31 Pulse Ox 100 03/05/21 07:31 Body Mass Index 20.5 Neuro: Other: Limited examination because of patient's advanced dementia. Moves all 4 extremities. No obvious focal findings. Plantar response are flexor. Neck is supple Results Labs CBC & Chem 7: 03/05/21 05:54 03/05/21 05:54 Labs: Short CBC 03/04/21 03/05/21 Range/Units 12:54 05:54 WBC 12.2 H 10.8 (4.8-10.8) X10*3/uL Hgb 15.1 13.5 L (14.0-18.0) g/dl Hct 44.9 40.9 L (42-52) % Plt Count 202 196 (160-400) X10*3/uL BMP 03/04/21 03/05/21 12:54 05:54 Sodium 145 145 Potassium 3.5 3.8 Chloride 113 H 115 H Carbon Dioxide 22 24 BUN 21 H 17 H Creatinine 1.01 1.02 Calcium 9.2 8.6 D Cardiac Enzymes 03/04/21 Range/Units 12:54 Total Creatine Kinase 45 (38-174) U/L Liver Function 03/04/21 Range/Units 12:54 Total Bilirubin 0.3 (0.0-1.0) mg/dL Direct Bilirubin 0.2 (0.0-0.5) mg/dL AST 16 (5-37) U/L ALT 19 (0-40) U/L Alkaline Phosphatase 110 (39-117) U/L Albumin 4.2 (3.5-5.0) g/dL Urine 03/04/21 Range/Units 11:53 Urine Color STRAW Urine Appearance CLEAR Urine pH 6.0 (5.0-8.0) Ur Specific [place] >= 1.030 H (1.005-1.025) Urine Protein 1+ H (NEG-TRACE) MG/DL Urine Glucose (UA) NEG (NEG) MG/DL Assessment and Plan (1) Seizure: Status: Acute New-onset of seizure, probably related to his dementia from Alzheimer's disease. Cannot rule out a small cortical infarct. He is CAT scan shows white matter microvascular disease. EEG. Continue Keppra 500 mg twice a day. Treatment of pneumonia Procedures Date of Service Date of Service: 03/05/21
--- NOTE | 2021-03-05 10:11 | MHC.SL.SWA ---
Speech Pathologist Impression: Risk of Aspiration Oral Phase Dysphagia Pharyngeal Dysphagia Risk of Aspiration Due to: Medically Fragile Reduced Cognition Weak Cough Dysphasia Diet Status: Downgrade Liquid Consistency and Strategies for Safe Swallow: Liquid Intake Recommendation: Thin Liquid Intake Strategies: Liquids by Teaspoon Only Solid Food Consistency: Dietary Recommendations: Grnd/Mech Altered (NDD2) Additional Modifications to Solid Foods: Small bites, alternating solids with liquid wash to ensure clearance. Oral Medication Intake: Crushed with Puree Compensatory Strategies and Precautions to be Taken for Safe Swallow: Oral care before/after meals Upright position during/after meals Presentation of dry spoon to complete oral cavity check and double swallow Supervision While Eating and Drinking for Safe Swallow: Total Supervision (1:1) Foods to Avoid: Avoid sticky, hard or dry foods. Patient requires 1:1 assistance for rate of ingestion, alternating small bites/sips and completing oral cavity checks. Residue is cleared with liquid wash or double swallow. Patient cannot follow commands for oral cavity check but when presented with a dry spoon, oral cavity can be checked and patient reflexively swallows again. Importance of oral care and avoiding straws were reviewed with granddaughter due to high aspiration risk. [facility] will follow-up 03/06/21 to ensure tolerance and provide education to caregiver(s). Hospital Television Rental Clerk Clinican/Clinical Fellow: No Supervisory Statement: I have reviewed and agree with the student/clinical fellow's documentation: N/A Speech Language Pathologist: Darlyn Stein M.A., [facility]
[2021-03-05] MEDS: amLODIPine Besylate 5 MG TABLET PO (10:46)
[2021-03-05] MEDS: QUEtiapine Fumarate 25 MG TABLET PO (10:47)
[2021-03-05] MEDS: Cholecalciferol (Vitamin D3) 25 MCG TABLET 50 MCG PO (10:47)
[2021-03-05] MEDS: Atorvastatin Calcium 20 MG TABLET PO (10:47)
[2021-03-05] MEDS: Donepezil HCl 10 MG TABLET PO (10:47)
--- NOTE | 2021-03-05 11:11 | MHC.CM.PN ---
spoke with pts and hcp rodrigo who expli ns that family had been working on lt placement for pt prior to admission at [facility], [place] ,prior to [facility] , explins that pt is 40% servceis connected states that pt had become aggressive and combative whil;e he was at home
--- NOTE | 2021-03-05 12:08 | PM.IMPN ---
Progress Note: A&P (1) Seizure: Status: Acute (2) Pneumonia: Status: Acute Assessment and Plan: 70-year-old man with a history of dementia and mostly nonverbal admitted with new onset seizure and community-acquired pneumonia.? Patient lives with his daughter and is full care. Unsure if seizure may have precipitated pna vs vice versa. Seizure.? Appears to be new onset. Likely secondary to dementia. Received Keppra and lorazepam in the ER, continue Keppra 500mg BID EEG pending Neurology following Seizure precautions Community-acquired pneumonia.? Rocephin, azithromycin Supplemental oxygen as needed Follow cultures Lactic acidosis.? Likely secondary to seizure not sepsis Received 30 mL/kg IV fluid bolus Follow Hypertension Continue amlodipine Dementia Continue Aricept Hyperlipidemia Continue statin DVT prophylaxis with Lovenox attending Dr. Servin Full code DISPO plan for tx to LTC Subjective Subjective Date of Service: 03/05/21 Interval History: Follow up seizure no seizure overnight Physical Exam Vital Signs: Vital Signs: Last Vital Signs Temp 98.9 F 03/05/21 11:18 Pulse 69 03/05/21 11:18 Resp 16 03/05/21 11:18 BP 128/97 H 03/05/21 11:18 Pulse Ox 99 03/05/21 11:18 Body Mass Index 20.5 sleeping, mumbling lung sounds are clear to auscultation heart regular rate rhythm, clear S1, S2 positive bowel sounds, abdomen is soft, nontender neuro patient confused, no focal deficits Objective Data Current Medications Generic Name Dose Route Start Last Admin Trade Name Freq PRN Reason Stop Dose Admin Acetaminophen 650 mg 03/04/21 16:42 Acetaminophen 325 Mg Tablet PO Q6H PRN Pain, Mild (Pain Scale 1-3) Amlodipine Besylate 5 mg 03/05/21 09:00 03/05/21 10:46 Amlodipine Besylate 5 Mg Tablet PO 5 mg DAILY FIOR Administration Protocol Atorvastatin Calcium 20 mg 03/05/21 09:00 03/05/21 10:47 Atorvastatin Calcium 20 Mg Tablet PO 20 mg DAILY FIOR Administration Donepezil HCl 10 mg 03/05/21 09:00 03/05/21 10:47 Donepezil Hcl 10 Mg Tablet PO 10 mg DAILY FIOR Administration Ceftriaxone Sodium 1 gm/ 50 mls @ 100 mls/hr 03/05/21 16:00 Sodium Chloride IV Q24H FIOR Azithromycin 500 mg/ Sodium 250 mls @ 125 mls/hr 03/05/21 16:00 Chloride IV Q24H FIOR Lorazepam 1 mg 03/04/21 16:42 Lorazepam 2 Mg/Ml Vial IVPUSH Q2H PRN seizure activity Ondansetron HCl 4 mg 03/04/21 16:42 Ondansetron Hcl 4 Mg/2 Ml Vial IVPUSH Q8H PRN Nausea and Vomiting Quetiapine Fumarate 25 mg 03/05/21 09:00 03/05/21 10:47 Quetiapine Fumarate 25 Mg Tablet PO 25 mg DAILY FIOR Administration Sodium Chloride 3 ml 03/05/21 00:00 03/05/21 10:47 0.9 % Sodium Chloride Flush 3 Ml Syringe IVFLUSH 3 ml QSHIFT FIOR Administration Vitamin D 50 mcg 03/05/21 09:00 03/05/21 10:47 Cholecalciferol (Vitamin D3) 25 Mcg Tablet PO 50 mcg DAILY FIOR Administration Labs CBC & Chem 7: 03/05/21 05:54 03/05/21 05:54 Labs: Laboratory Results - last 24 hr 03/04/21 03/04/21 03/04/21 11:10 11:53 12:54 MCV 81.6 MCH 27.5 MCHC 33.6 RDW 15.2 Plt Count 202 MPV 9.5 Immature Gran % (Auto) 1.1 H Neut % (Auto) 89.3 H Lymph % (Auto) 5.6 L Howard % (Auto) 3.6 Eos % (Auto) 0.2 Baso % (Auto) 0.2 Lymph # (Auto) 0.7 L Howard # (Auto) 0.4 Eos # (Auto) 0.0 Baso # (Auto) 0.0 Abs Immat Gran (auto) 0.13 H Absolute Neuts (auto) 10.9 H Absolute Nucleated RBC 0.000 Nucleated RBC % (auto) 0.0 Anion Gap Estim Creat Clear Calc Estimated GFR POC Glucose 144 H Random Glucose Lactic Acid Lactic Acid Fup @ 2Hr Lactic Acid Fup @ 4Hr Calcium Magnesium Total Bilirubin Direct Bilirubin AST ALT Alkaline Phosphatase Total Creatine Kinase Troponin I High Sens Total Protein Albumin Urine Color STRAW Urine Appearance CLEAR Urine pH 6.0 Ur Specific [place] >= 1.030 H Urine Protein 1+ H Urine Glucose (UA) NEG Urine Ketones NEG Urine Blood TRACE Urine Nitrite NEG Ur Leukocyte Esterase NEG Urine RBC 0-2 Urine WBC 0-2 Ur Squamous Epith Cells NONE Amorphous Sediment 3+ Urine Bacteria NONE Urine Mucus TRACE COVID-19 ([place]) COVID-19 [employer] 03/04/21 03/04/21 03/04/21 12:54 12:54 12:54 MCV MCH MCHC RDW Plt Count MPV Immature Gran % (Auto) Neut % (Auto) Lymph % (Auto) Howard % (Auto) Eos % (Auto) Baso % (Auto) Lymph # (Auto) Howard # (Auto) Eos # (Auto) Baso # (Auto) Abs Immat Gran (auto) Absolute Neuts (auto) Absolute Nucleated RBC Nucleated RBC % (auto) Anion Gap 14 Estim Creat Clear Calc 53.1 Estimated GFR > 60 POC Glucose Random Glucose 117 H Lactic Acid Lactic Acid Fup @ 2Hr Lactic Acid Fup @ 4Hr Calcium 9.2 Magnesium 2.4 Total Bilirubin 0.3 Direct Bilirubin 0.2 AST 16 ALT 19 Alkaline Phosphatase 110 Total Creatine Kinase 45 Troponin I High Sens Total Protein 7.0 Albumin 4.2 Urine Color Urine Appearance Urine pH Ur Specific [place] Urine Protein Urine Glucose (UA) Urine Ketones Urine Blood Urine Nitrite Ur Leukocyte Esterase Urine RBC Urine WBC Ur Squamous Epith Cells Amorphous Sediment Urine Bacteria Urine Mucus COVID-19 ([facility]) COVID-[employer] 03/04/21 03/04/21 03/04/21 12:54 15:51 15:56 MCV MCH MCHC RDW Plt Count MPV Immature Gran % (Auto) Neut % (Auto) Lymph % (Auto) Howard % (Auto) Eos % (Auto) Baso % (Auto) Lymph # (Auto) Howard # (Auto) Eos # (Auto) Baso # (Auto) Abs Immat Gran (auto) Absolute Neuts (auto) Absolute Nucleated RBC Nucleated RBC % (auto) Anion Gap Estim Creat Clear Calc Estimated GFR POC Glucose Random Glucose Lactic Acid 12.4 H* Lactic Acid Fup @ 2Hr Lactic Acid Fup @ 4Hr Calcium Magnesium Total Bilirubin Direct Bilirubin AST ALT Alkaline Phosphatase Total Creatine Kinase Troponin I High Sens < 3.5 Total Protein Albumin Urine Color Urine Appearance Urine pH Ur Specific [place] Urine Protein Urine Glucose (UA) Urine Ketones Urine Blood Urine Nitrite Ur Leukocyte Esterase Urine RBC Urine WBC Ur Squamous Epith Cells Amorphous Sediment Urine Bacteria Urine Mucus COVID-19 ([facility]) Negative COVID-19 [employer] See Note 03/04/21 03/04/21 03/04/21 17:48 18:54 20:21 MCV MCH MCHC RDW Plt Count MPV Immature Gran % (Auto) Neut % (Auto) Lymph % (Auto) Howard % (Auto) Eos % (Auto) Baso % (Auto) Lymph # (Auto) Howard # (Auto) Eos # (Auto) Baso # (Auto) Abs Immat Gran (auto) Absolute Neuts (auto) Absolute Nucleated RBC Nucleated RBC % (auto) Anion Gap Estim Creat Clear Calc Estimated GFR POC Glucose Random Glucose Lactic Acid 2.9 H* Lactic Acid Fup @ 2Hr 3.4 H* 2.7 H* Lactic Acid Fup @ 4Hr Calcium Magnesium Total Bilirubin Direct Bilirubin AST ALT Alkaline Phosphatase Total Creatine Kinase Troponin I High Sens Total Protein Albumin Urine Color Urine Appearance Urine pH Ur Specific [place] Urine Protein Urine Glucose (UA) Urine Ketones Urine Blood Urine Nitrite Ur Leukocyte Esterase Urine RBC Urine WBC Ur Squamous Epith Cells Amorphous Sediment Urine Bacteria Urine Mucus COVID-19 ([facility]) COVID-19 [employer] 03/04/21 03/04/21 03/05/21 21:29 22:47 05:54 MCV 83.3 MCH 27.5 MCHC 33.0 RDW 15.4 Plt Count 196 MPV 9.7 Immature Gran % (Auto) 0.6 H Neut % (Auto) 85.2 H Lymph % (Auto) 7.4 L Howard % (Auto) 6.4 Eos % (Auto) 0.2 Baso % (Auto) 0.2 Lymph # (Auto) 0.8 L Howard # (Auto) 0.7 Eos # (Auto) 0.0 Baso # (Auto) 0.0 Abs Immat Gran (auto) 0.06 H Absolute Neuts (auto) 9.2 H Absolute Nucleated RBC 0.000 Nucleated RBC % (auto) 0.0 Anion Gap Estim Creat Clear Calc Estimated GFR POC Glucose Random Glucose Lactic Acid Lactic Acid Fup @ 2Hr Lactic Acid Fup @ 4Hr 2.8 H* 2.0 Calcium Magnesium Total Bilirubin Direct Bilirubin AST ALT Alkaline Phosphatase Total Creatine Kinase Troponin I High Sens Total Protein Albumin Urine Color Urine Appearance Urine pH Ur Specific [place] Urine Protein Urine Glucose (UA) Urine Ketones Urine Blood Urine Nitrite Ur Leukocyte Esterase Urine RBC Urine WBC Ur Squamous Epith Cells Amorphous Sediment Urine Bacteria Urine Mucus COVID-19 ([facility]) COVID-19 Clin Com 03/05/21 05:54 MCV MCH MCHC RDW Plt Count MPV Immature Gran % (Auto) Neut % (Auto) Lymph % (Auto) Howard % (Auto) Eos % (Auto) Baso % (Auto) Lymph # (Auto) Howard # (Auto) Eos # (Auto) Baso # (Auto) Abs Immat Gran (auto) Absolute Neuts (auto) Absolute Nucleated RBC Nucleated RBC % (auto) Anion Gap 10 L Estim Creat Clear Calc 52.6 Estimated GFR > 60 POC Glucose Random Glucose 92 Lactic Acid Lactic Acid Fup @ 2Hr Lactic Acid Fup @ 4Hr Calcium 8.6 D Magnesium Total Bilirubin Direct Bilirubin AST ALT Alkaline Phosphatase Total Creatine Kinase Troponin I High Sens Total Protein Albumin Urine Color Urine Appearance Urine pH Ur Specific [place] Urine Protein Urine Glucose (UA) Urine Ketones Urine Blood Urine Nitrite Ur Leukocyte Esterase Urine RBC Urine WBC Ur Squamous Epith Cells Amorphous Sediment Urine Bacteria Urine Mucus COVID-19 ([facility]) COVID-19 Clin Com Quality Stroke Does the patient have a stroke diagnosis?: No VTE Prior VTE?: No VTE Risk Level:: Medical - moderate - high VTE Device Contraindication: Treatment Not Indicated VTE Drug Contraindication: N/A - Med Ordered
[2021-03-05] MEDS: Enoxaparin Sodium 40 MG/0.4 ML SYRINGE SUBCUT (13:43)
[2021-03-05] MEDS: levETIRAcetam 500 MG TABLET PO ×2 (13:43→20:18)
[2021-03-05] MEDS: cefTRIAXone sodium 1 GM in 0.9 % Sodium Chloride 50 ML IV (17:40)
[2021-03-05] MEDS: Azithromycin 500 MG in 0.9 % Sodium Chloride 250 ML 125 MG IV (17:45)
[2021-03-05] MEDS: Melatonin 3 MG TABLET 6 MG PO (20:28)
[2021-03-06] VITALS (8 sets, daily range): BP systolic 106–144; BP diastolic 70–84; PULSE 68–92; RESP 16–18; TEMP 36.1–36.9; O2SAT 95–98
[2021-03-06] MEDS: 0.9 % Sodium Chloride Flush 3 ML SYRINGE IVFLUSH ×3 (09:25→23:57)
[2021-03-06] MEDS: Atorvastatin Calcium 20 MG TABLET PO (09:25)
[2021-03-06] MEDS: Donepezil HCl 10 MG TABLET PO (09:25)
[2021-03-06] MEDS: levETIRAcetam 500 MG TABLET PO ×2 (09:25→20:21)
[2021-03-06] MEDS: amLODIPine Besylate 5 MG TABLET PO (09:25)
[2021-03-06] MEDS: QUEtiapine Fumarate 25 MG TABLET PO (09:26)
[2021-03-06] MEDS: Cholecalciferol (Vitamin D3) 25 MCG TABLET 50 MCG PO (09:26)
--- NOTE | 2021-03-06 11:07 | MHC.SL.SWA ---
Speech Pathologist Impression: Risk of Aspiration Oral Phase Dysphagia Pharyngeal Dysphagia Risk of Aspiration Due to: Medically Fragile Reduced Cognition Weak Cough Dysphasia Diet Status: No Change Liquid Consistency and Strategies for Safe Swallow: Liquid Intake Recommendation: Thin Liquid Intake Strategies: Small Sips No Straws Solid Food Consistency: Dietary Recommendations: Grnd/Mech Altered (NDD2) Additional Modifications to Solid Foods: Small bites, alternating solids with liquid wash to ensure clearance. Oral Medication Intake: Crushed with Puree Compensatory Strategies and Precautions to be Taken for Safe Swallow: Sitting Upright (90 deg) Double Swallow No Straw Small Bites and Sips Alternate Liquids/Solids Rate of Ingestion Change Oral Check Avoid Specific Foods Supervision While Eating and Drinking for Safe Swallow: Total Assistance Foods to Avoid: Avoid sticky, hard or dry foods. Swallowing Recommended Treatments: Compens. Strategy Educat. Recommendation for Speech: Patient appears to be on appropriate diet textures. Recommend 1 follow up to ensure tolerance given patient's dementia and current PNA diagnosis. Financial Analyst Accountant Clinican/Clinical Fellow: No Supervisory Statement: I have reviewed and agree with the student/clinical fellow's documentation: N/A Speech Language Pathologist: Angie Patel M.A., CCC-CONE TREATER
--- NOTE | 2021-03-06 11:25 | HO.PM.IMPN ---
Subjective Subjective Date of Service: 03/06/21 Interval History: follow up for pneumonia, new onset seizure family at bedside reports no coughing that they have noticed pt has history of dementia and primarily nonverbal, unable to provide ROS Observed sitting up in bed, awake and alert. Review of Systems Review of Systems: Yes Unobtainable due to mental status Physical Exam Vital Signs: Vital Signs: Last Vital Signs Temp 98.5 F 03/06/21 07:26 Pulse 86 03/06/21 09:25 Resp 17 03/06/21 07:26 BP 109/70 03/06/21 09:25 Pulse Ox 98 03/06/21 07:26 Body Mass Index 20.5 Const: General: comfortable, alert and awake Nutritional Appearance: well nourished HENMT: Head: Yes normocephalic and Yes atraumatic Eyes: Sclerae: sclerae normal Chest: Chest palpation & inspection: normal inspection of the chest Resp: Effort & Inspection: normal respiratory effort and no respiratory distress Cardio: Rate: regular rate Rhythm: regular rhythm GI: Palpation (GI): Soft to palpation Neuro: Cranial nerves: Yes CN's II-XII intact bilaterally and Yes Bilaterally intact EOM present Extrem: General: Yes normal to inspection Objective Data Current Medications Generic Name Dose Route Start Last Admin Trade Name Freq PRN Reason Stop Dose Admin Acetaminophen 650 mg 03/04/21 16:42 Acetaminophen 325 Mg Tablet PO Q6H PRN Pain, Mild (Pain Scale 1-3) Amlodipine Besylate 5 mg 03/05/21 09:00 03/06/21 09:25 Amlodipine Besylate 5 Mg Tablet PO 5 mg DAILY FIOR Administration Protocol Atorvastatin Calcium 20 mg 03/05/21 09:00 03/06/21 09:25 Atorvastatin Calcium 20 Mg Tablet PO 20 mg DAILY FIOR Administration Donepezil HCl 10 mg 03/05/21 09:00 03/06/21 09:25 Donepezil Hcl 10 Mg Tablet PO 10 mg DAILY FIOR Administration Enoxaparin Sodium 40 mg 03/05/21 13:00 03/05/21 13:43 Enoxaparin Sodium 40 Mg/0.4 Ml Syringe SUBCUT 40 mg Q24H FIOR Administration Ceftriaxone Sodium 1 gm/ 50 mls @ 100 mls/hr 03/05/21 16:00 03/05/21 18:19 Sodium Chloride IV Infused Q24H FIOR Infusion Azithromycin 500 mg/ Sodium 250 mls @ 125 mls/hr 03/05/21 16:00 03/05/21 19:55 Chloride IV Infused Q24H FIOR Infusion Levetiracetam 500 mg 03/06/21 09:00 03/06/21 09:25 Levetiracetam 500 Mg Tablet PO 500 mg BID FIOR Administration Lorazepam 1 mg 03/04/21 16:42 Lorazepam 2 Mg/Ml Vial IVPUSH Q2H PRN seizure activity Ondansetron HCl 4 mg 03/04/21 16:42 Ondansetron Hcl 4 Mg/2 Ml Vial IVPUSH Q8H PRN Nausea and Vomiting Quetiapine Fumarate 25 mg 03/05/21 09:00 03/06/21 09:26 Quetiapine Fumarate 25 Mg Tablet PO 25 mg DAILY FIOR Administration Sodium Chloride 3 ml 03/05/21 00:00 03/06/21 09:25 0.9 % Sodium Chloride Flush 3 Ml Syringe IVFLUSH 3 ml QSHIFT FIOR Administration Vitamin D 50 mcg 03/05/21 09:00 03/06/21 09:26 Cholecalciferol (Vitamin D3) 25 Mcg Tablet PO 50 mcg DAILY FIOR Administration Labs CBC & Chem 7: 03/05/21 05:54 03/05/21 05:54 Microbiology Microbiology Results: Microbiology 03/04/21 15:56 Blood Culture - Preliminary Blood - Venous No growth after 24 hours. 03/04/21 15:51 Blood Culture - Preliminary Blood - Venous No growth after 24 hours. Assessment and Plan (1) Seizure: Status: Acute (2) Pneumonia: Status: Acute Assessment and Plan: This is a 70-year-old man with a history of dementia, mostly nonverbal admitted with new onset seizure and community-acquired pneumonia.? Patient lives with his daughter and is full care. Seizure.? Appears to be new onset. Seen by neurology, thought to be secondary to dementia. -continue Keppra 500mg BID -EEG pending -Seizure precautions Community-acquired pneumonia Improving. Afebrile, leukocytosis resolved -continue IV Rocephin, azithromycin day #3 -Blood cultures negative x 24 hours Lactic acidosis.? Resolved Likely secondary to seizure not sepsis Received 30 mL/kg IV fluid bolus Hypertension Blood pressure controlled -Continue amlodipine Dementia -Continue Aricept, seroquel Hyperlipidemia -Continue statin DVT prophylaxis with Lovenox attending Dr. Servin Full code DISPO plan for tx to LTC Attending: Dr. Robledo Quality Stroke Does the patient have a stroke diagnosis?: No VTE Prior VTE?: No VTE Risk Level:: Medical - moderate - high VTE Device Contraindication: Treatment Not Indicated VTE Drug Contraindication: N/A - Med Ordered
[2021-03-06] MEDS: Enoxaparin Sodium 40 MG/0.4 ML SYRINGE SUBCUT (13:51)
[2021-03-06] MEDS: Azithromycin 500 MG in 0.9 % Sodium Chloride 250 ML 125 MG IV (16:54)
[2021-03-06] MEDS: cefTRIAXone sodium 1 GM in 0.9 % Sodium Chloride 50 ML IV (16:54)
[2021-03-07 03:05] VITALS: BP 140/79; PULSE 71; RESP 16; TEMP 36.3; O2SAT 95
[2021-03-07 07:21] LABS: Hematocrit 37.6 % (42-52); Hemoglobin 12.7 g/dl (14.0-18.0); Mean Corpuscular HGB Conc 33.8 g/dl (31.0-36.0); Mean Corpuscular Hemoglobin 27.7 pg (27.0-33.0); Mean Corpuscular Volume 82.1 fL (80-98); Mean Platelet Volume 10.4 fL (9.4-12.4); Platelet Count 169 X10*3/uL (160-400); Red Blood Count 4.58 X10*6/uL (4.60-5.80); Red Cell Distribution Width 14.7 % (11.0-16.0); White Blood Count 6.5 X10*3/uL (4.8-10.8)
[2021-03-07 07:44] LABS: Anion Gap 10 (12-20); Blood Urea Nitrogen 19 mg/dL (9-16); Calcium 8.7 mg/dL (8.4-10.2); Carbon Dioxide 26 mmol/L (22-29); Chloride 110 mmol/L (96-108); Creatinine Clr Calc Pharmacy 53.6; Estimated Glomerular Filt Rate > 60; Glucose Random 88 mg/dL (60-115); Potassium 3.7 mmol/L (3.3-5.1); Sodium 142 mmol/L (135-145)
[2021-03-07 09:10] VITALS: BP 140/79; PULSE 71
[2021-03-07] MEDS: amLODIPine Besylate 5 MG TABLET PO (09:10)
[2021-03-07] MEDS: Cholecalciferol (Vitamin D3) 25 MCG TABLET 50 MCG PO (09:10)
[2021-03-07] MEDS: QUEtiapine Fumarate 25 MG TABLET PO (09:10)
[2021-03-07] MEDS: Donepezil HCl 10 MG TABLET PO (09:11)
[2021-03-07] MEDS: Atorvastatin Calcium 20 MG TABLET PO (09:11)
[2021-03-07] MEDS: levETIRAcetam 500 MG TABLET PO ×2 (09:11→22:35)
[2021-03-07] MEDS: 0.9 % Sodium Chloride Flush 3 ML SYRINGE IVFLUSH ×3 (09:11→22:40)
--- NOTE | 2021-03-07 10:18 | MHC.SL.SWA ---
Speech Pathologist Impression: Risk of Aspiration Oral Phase Dysphagia Pharyngeal Dysphagia Risk of Aspiration Due to: Medically Fragile Reduced Cognition Weak Cough Dysphasia Diet Status: Downgrade Liquid Consistency and Strategies for Safe Swallow: Liquid Intake Recommendation: Thin Liquid Intake Strategies: Small Sips No Straws Solid Food Consistency: Dietary Recommendations: Grnd/Mech Altered (NDD2) Additional Modifications to Solid Foods: Small bites, alternating solids with liquid wash to ensure clearance. Oral Medication Intake: Crushed with Puree Compensatory Strategies and Precautions to be Taken for Safe Swallow: Sitting Upright (90 deg) Double Swallow No Straw Small Bites and Sips Alternate Liquids/Solids Rate of Ingestion Change Oral Check Avoid Specific Foods Supervision While Eating and Drinking for Safe Swallow: Total Assistance Foods to Avoid: Avoid sticky, hard or dry foods. Swallowing Recommended Treatments: Compens. Strategy Educat. Recommendation for Speech: Comment: No overt s/s of aspiration observed with ground/mech altered (NDD 2) solids or thin liquids via teaspoon or cup sip. Patient is disorientated and keeps his eye closed and so he struggled to form an adequate labial seal for a cup sip. Patient requires 1:1 assistance for rate of ingestion, alternating small bites/sips and completing oral cavity checks. Residue is cleared with liquid wash or double swallow. Patient cannot follow commands for oral cavity check but when presented with a dry spoon, oral cavity can be checked and patient reflexively swallows again. Current diet recommendations continue to seem appropriate. Inpatient ST no longer warranted, please re-refer if condition changes. Pharmacy Service Associate Clinican/Clinical Fellow: No Supervisory Statement: I have reviewed and agree with the student/clinical fellow's documentation: N/A Speech Language Pathologist: Darlyn Stein M.A., CCC-TRANSITION PROGRAM MANAGER
[2021-03-07 11:34] VITALS: BP 131/69; PULSE 67; RESP 18; TEMP 36.9; O2SAT 99
--- NOTE | 2021-03-07 12:09 | P.DS_ITS ---
DS: Providers Provider Date of Service: 03/12/21 Date of admission: 03/04/21 16:46 Primary care physician: Unknown Physician Consults: 03/04/21 16:42 Consult to Neurology Routine Consulting Provider: [facility] Reason for consultation: seizure Has provider been notified: No DS: Diagnosis Discharge Diagnosis (1) Seizure: Status: Acute (2) Pneumonia: Status: Acute DS: Medications Discharge Medications Home Medications: Home Medications Medication Instructions Recorded Confirmed amlodipine 5 mg tablet 5 mg PO DAILY 03/04/21 03/04/21 cholecalciferol (vitamin D3) 50 50 mcg PO DAILY 03/04/21 03/04/21 mcg (2,000 unit) tablet cyanocobalamin (vitamin B-12) 500 500 mcg PO DAILY 03/04/21 03/04/21 mcg tablet donepezil 10 mg tablet 10 mg PO DAILY 03/04/21 03/04/21 lorazepam 0.5 mg tablet 0.5 mg PO DAILY PRN 03/04/21 03/04/21 melatonin 10 mg tablet 10 mg PO DAILY PRN 03/04/21 03/04/21 melatonin 5 mg tablet 10 mg PO BEDTIME 03/04/21 03/04/21 mirtazapine 30 mg tablet 30 mg PO BEDTIME 03/04/21 03/04/21 polyethylene glycol 3350 17 17 g PO DAILY PRN 03/04/21 03/04/21 gram/dose oral powder (Miralax) quetiapine 25 mg tablet 25 mg PO TID PRN 03/04/21 03/04/21 sertraline 20 mg/mL oral 100 mg PO DAILY 03/04/21 03/04/21 concentrate (Zoloft) simvastatin 40 mg tablet 20 mg PO DAILY 03/04/21 03/04/21 Previous Rx's Medication Instructions Recorded amoxicillin 875 mg-potassium 1 tab PO Q12H 5 Days #10 tab 03/04/21 clavulanate 125 mg tablet (Augmentin) DS: Summary Hospital Course Hospital Course: From H&P on day of admission This is a 70 year old man presenting after seizure home.? According to the patient's daughter who was present during the interview the patient was being fed by his other daughter and suddenly became very stiff and started shaking.? She is unsure if there was any loss of bowel or bladder.? He was brought to the ER.? Recently had not been sick.? He has a history of dementia, requires full care therefore he is unable to give any information during the interview.? It appeared on CT scan that the patient had a pneumonia and he was going to be sent home on oral antibiotics however just prior to that he had a tonic-clonic seizure in the ER and was given lorazepam and Keppra.? His lactic acid was elevated at 0.4 and this was likely related to the seizure as well as he tachycardia tachypnea and hypertension at that time.? Just prior to that the patient had not presented with any fever tachycardia or hypertension.? He was also started on Rocephin and azithromycin for seizure.? Will be admitted for further management and treatment of acute seizure and community-acquired pneumonia. New onset Seizure.? Brain CT was done and showed no acute intracranial pathology It showed chronic micoangiopathy. He was seen by neurology who felt that the seizure may be secondary to dementia. They recommended keppra and EEG. EEG was attempted but the patient was unable to cooperate for study. He had no further seizure activity following admission. He will be discharged home with Keppra 500 mg b.i.d.. He should call to schedule follow-up appointment with Neurology. EEG may be attempted as outpatient. Pneumonia. Possibly secondary to aspiration. Patient was started on IV ceftriaxone and azithromycin. He is not currently requiring any oxygen and has remained afebrile. He has completed the entire course of antibiotics during hospital stay. Lactic acidosis.?Initially lactic acid was elevated and likely secondary to seizure. This resolved with IVF. Dysphagia. Pt was evaluated by speech who recommended ground mechanical diet with thin liquids and pills crushed in puree. Time Spent with Patient Time attestation: Total time spent providing and/or coordinating discharge services: Discharge coordination time: Greater than 30 minutes Quality: Stroke Does the patient have a stroke diagnosis?: No Physical Exam Vital Signs: Vital Signs: Last Vital Signs Temp 98.4 F 03/07/21 11:34 Pulse 67 03/07/21 11:34 Resp 18 03/07/21 11:34 BP 131/69 03/07/21 11:34 Pulse Ox 99 03/07/21 11:34 Body Mass Index 20.5 Const: Other: sittiing up in bed. appears comfortable. mostly non-verbal (baseline); sleepy but easily arousable to verbal stimuli General: comfortable and no acute distress HENMT: Head: Yes normocephalic and Yes atraumatic Eyes: Sclerae: sclerae normal Chest: Chest palpation & inspection: normal inspection of the chest Resp: Effort & Inspection: normal respiratory effort and no respiratory distress Cardio: Rate: regular rate Rhythm: regular rhythm DS: Data Data Completed and Pending Labs on day of discharge: Laboratory Results - last 24 hr 03/07/21 03/07/21 06:11 06:11 WBC 6.5 RBC 4.58 L Hgb 12.7 L Hct 37.6 L MCV 82.1 MCH 27.7 MCHC 33.8 RDW 14.7 Plt Count 169 MPV 10.4 Absolute Nucleated RBC 0.000 Nucleated RBC % (auto) 0.0 Sodium 142 Potassium 3.7 Chloride 110 H Carbon Dioxide 26 Anion Gap 10 L BUN 19 H Creatinine 1.00 Estim Creat Clear Calc 53.6 Estimated GFR > 60 Random Glucose 88 Calcium 8.7 Preliminary micro results at discharge 03/04/21 15:56 Blood Culture - Preliminary Blood - Venous No growth after 48 hours. 03/04/21 15:51 Blood Culture - Preliminary Blood - Venous No growth after 48 hours. Discharge Plan Discharge Patient Disposition: er [facility] Discharge Diagnosis: new onset seizure pneumonia Referrals: [facility] [Other] - 1 Week Jimena Alva MD [Physician] - 2 Weeks Physician,Unknown [Primary Care Provider] - 1 Week Discharge Medications: New levetiracetam 250 mg Tablet 250 mg PO BID 30 Days Qty: 60 RF: 0 quetiapine 25 mg Tablet 25 mg PO DAILY 1 Days Qty: 1 RF: 0 Continued donepezil 10 mg Tablet 10 mg PO DAILY RF: 0 amlodipine 5 mg Tablet 5 mg PO DAILY RF: 0 simvastatin 40 mg Tablet 20 mg PO DAILY RF: 0 cyanocobalamin (vitamin B-12) 500 mcg Tablet 500 mcg PO DAILY RF: 0 cholecalciferol (vitamin D3) 50 mcg (2,000 unit) Tablet 50 mcg PO DAILY RF: 0 lorazepam 0.5 mg Tablet 0.5 mg PO DAILY PRN (Reason: Anxiety) RF: 0 polyethylene glycol 3350 [Miralax] 17 gram/dose Powder 17 g PO DAILY PRN (Reason: Constipation) RF: 0 sertraline [Zoloft] 20 mg/mL Concentrate 100 mg PO DAILY RF: 0 melatonin 5 mg Tablet 10 mg PO BEDTIME RF: 0 Held mirtazapine 30 mg Tablet 30 mg PO BEDTIME RF: 0 Hold Instructions: held due to somnolence, can reeval and resume if indicated Discontinued quetiapine 25 mg Tablet 25 mg PO TID PRN (Reason: Agitation) RF: 0 melatonin 10 mg Tablet 10 mg PO DAILY PRN (Reason: SLEEP/IRRITABILITY) RF: 0 Discharge Orders: Discharge Order (Routine); Ordered 03/12/21 Ordered By: Alejandra Alfaro Activity on Discharge: As tolerated Stand Alone Forms: Patient Portal Discharge page Print Language: Setswana Care Plan Goals: see below Health Concerns: pneumonia seizure dysphagia Plan of Treatment: Seizure - unable to cooperate with EEG. Has been started on keppra. Should schedule follow up appointment with neurology. Can re-attempt EEG as outpatient. Dysphagia - seen by speech, rec ground mechanical diet with thin liquids and pills crushed in puree. aspiration precautions pneumonia - completed course of antibiotics while in the hospital Assessment: see discharge summary Patient Instructions: Pneumonia (ED)
[2021-03-07 13:02] LABS: COVID-19 Test Negative (Negative); IDNOW Serial# 9DD0AD1C
--- NOTE | 2021-03-07 13:53 | MHC.CM.PN ---
Patient has been accepted at [facility], who will review referral again on 03/10/21.
--- NOTE | 2021-03-07 14:14 | P.PNIM_ITS ---
Subjective Subjective Date of Service: 03/07/21 Interval History: Seen and examined this morning No reported overnight events Patient primarily nonverbal at baseline, unable to provide any significant ROS Patient appears comfortable. Review of Systems Review of Systems: Yes Unobtainable due to mental status Physical Exam Vital Signs: Vital Signs: Last Vital Signs Temp 98.4 F 03/07/21 11:34 Pulse 67 03/07/21 11:34 Resp 18 03/07/21 11:34 BP 131/69 03/07/21 11:34 Pulse Ox 99 03/07/21 11:34 Body Mass Index 20.5 Const: Other: sittiing up in bed. appears comfortable. mostly non-verbal (baseline) General: comfortable, no acute distress, alert and awake Nutrit ional Appearance: thin HENMT: Head: Yes normocephalic and Yes atraumatic Eyes: Sclerae: sclerae normal Resp: Effort & Inspection: normal respiratory effort and no respiratory distress Cardio: Rate: regular rate Rhythm: regular rhythm Heart sounds: S1 normal heart sound present and S2 normal heart sound present GI: Palpation (GI): Soft to palpation and nontender Extrem: General: Yes normal to inspection Objective Data Current Medications Generic Name Dose Route Start Last Admin Trade Name Freq PRN Reason Stop Dose Admin Acetaminophen 650 mg 03/04/21 16:42 Acetaminophen 325 Mg Tablet PO Q6H PRN Pain, Mild (Pain Scale 1-3) Amlodipine Besylate 5 mg 03/05/21 09:00 03/07/21 09:10 Amlodipine Besylate 5 Mg Tablet PO 5 mg DAILY FIOR Administration Protocol Atorvastatin Calcium 20 mg 03/05/21 09:00 03/07/21 09:11 Atorvastatin Calcium 20 Mg Tablet PO 20 mg DAILY FIOR Administration Donepezil HCl 10 mg 03/05/21 09:00 03/07/21 09:11 Donepezil Hcl 10 Mg Tablet PO 10 mg DAILY FIOR Administration Enoxaparin Sodium 40 mg 03/05/21 13:00 03/06/21 13:51 Enoxaparin Sodium 40 Mg/0.4 Ml Syringe SUBCUT 40 mg Q24H FIOR Administration Ceftriaxone Sodium 1 gm/ 50 mls @ 100 mls/hr 03/05/21 16:00 03/06/21 18:15 Sodium Chloride IV Infused Q24H FIOR Infusion Azithromycin 500 mg/ Sodium 250 mls @ 125 mls/hr 03/05/21 16:00 03/06/21 19:41 Chloride IV Infused Q24H FIOR Infusion Levetiracetam 500 mg 03/06/21 09:00 03/07/21 09:11 Levetiracetam 500 Mg Tablet PO 500 mg BID FIOR Administration Lorazepam 1 mg 03/04/21 16:42 Lorazepam 2 Mg/Ml Vial IVPUSH Q2H PRN seizure activity Ondansetron HCl 4 mg 03/04/21 16:42 Ondansetron Hcl 4 Mg/2 Ml Vial IVPUSH Q8H PRN Nausea and Vomiting Quetiapine Fumarate 25 mg 03/05/21 09:00 03/07/21 09:10 Quetiapine Fumarate 25 Mg Tablet PO 25 mg DAILY FIOR Administration Sodium Chloride 3 ml 03/05/21 00:00 03/07/21 09:11 0.9 % Sodium Chloride Flush 3 Ml Syringe IVFLUSH 3 ml QSHIFT FIOR Administration Vitamin D 50 mcg 03/05/21 09:00 03/07/21 09:10 Cholecalciferol (Vitamin D3) 25 Mcg Tablet PO 50 mcg DAILY FIOR Administration Labs CBC & Chem 7: 03/07/21 06:11 03/07/21 06:11 Labs: Laboratory Results - last 24 hr 03/07/21 03/07/21 03/07/21 06:11 06:11 12:28 MCV 82.1 MCH 27.7 MCHC 33.8 RDW 14.7 Plt Count 169 MPV 10.4 Absolute Nucleated RBC 0.000 Nucleated RBC % (auto) 0.0 Anion Gap 10 L Estim Creat Clear Calc 53.6 Estimated GFR > 60 Random Glucose 88 Calcium 8.7 COVID-19 ([facility]) Negative COVID-19 Clin Com See Note Microbiology Microbiology Results: Microbiology 03/04/21 15:56 Blood Culture - Preliminary Blood - Venous No growth after 48 hours. 03/04/21 15:51 Blood Culture - Preliminary Blood - Venous No growth after 48 hours. Assessment and Plan (1) Seizure: Status: Acute Assessment and Plan: This is a 70-year-old man with a history of dementia, mostly nonverbal admitted with new onset seizure and community-acquired pneumonia.? Patient lives with his daughter and is full care. Seizure, new onset Seen by neurology, thought to be secondary to dementia. Attempted EEG, patient unable to cooperate. Can consider outpatient EEG in future -continue Keppra 500mg BID -Seizure precautions -follow-up with neurology after discharge Community-acquired pneumonia Improving. Afebrile, leukocytosis resolved -continue IV Rocephin, azithromycin day #4 -Blood cultures negative Dysphagia. Seen by tanisha portillo mechanical diet with thin liqs and pills crushed in puree Lactic acidosis.? Resolved Likely secondary to seizure not sepsis Received 30 mL/kg IV fluid bolus Hypertension Blood pressure controlled -Continue amlodipine Dementia -Continue Aricept, seroquel Hyperlipidemia -Continue statin Fecal impaction seen on initial CT of abdomen - documented to have more then one BM since CT done. Abdomen soft, appears non-tender DVT prophylaxis with Lovenox Full code DISPO plan for tx to LTC, [facility] unable to take patient until next week. Attending: Dr. Robledo Quality Stroke Does the patient have a stroke diagnosis?: No VTE Prior VTE?: No VTE Risk Level:: Medical - moderate - high VTE Device Contraindication: Treatment Not Indicated VTE Drug Contraindication: N/A - Med Ordered
[2021-03-07 15:57] VITALS: BP 127/74; PULSE 66; RESP 18; TEMP 36.8; O2SAT 99
[2021-03-07] MEDS: cefTRIAXone sodium 1 GM in 0.9 % Sodium Chloride 50 ML IV (16:10)
[2021-03-07] MEDS: Enoxaparin Sodium 40 MG/0.4 ML SYRINGE SUBCUT (16:11)
[2021-03-07] MEDS: Azithromycin 500 MG in 0.9 % Sodium Chloride 250 ML 125 MG IV (16:11)
[2021-03-07 19:42] VITALS: BP 133/73; PULSE 66; RESP 18; TEMP 37.2; O2SAT 98
[2021-03-07 23:24] VITALS: BP 140/82; PULSE 67; RESP 18; TEMP 36.7; O2SAT 97
[2021-03-08] VITALS (7 sets, daily range): BP systolic 125–155; BP diastolic 72–87; PULSE 65–82; RESP 18–20; TEMP 36.4–37.1; O2SAT 95–99
[2021-03-08] MEDS: amLODIPine Besylate 5 MG TABLET PO (08:30)
[2021-03-08] MEDS: Cholecalciferol (Vitamin D3) 25 MCG TABLET 50 MCG PO (08:30)
[2021-03-08] MEDS: Atorvastatin Calcium 20 MG TABLET PO (08:30)
[2021-03-08] MEDS: levETIRAcetam 500 MG TABLET PO ×2 (08:31→21:09)
[2021-03-08] MEDS: Donepezil HCl 10 MG TABLET PO (08:31)
[2021-03-08] MEDS: 0.9 % Sodium Chloride Flush 3 ML SYRINGE IVFLUSH ×3 (08:31→21:15)
[2021-03-08] MEDS: QUEtiapine Fumarate 25 MG TABLET PO (08:31)
--- NOTE | 2021-03-08 11:06 | P.PNIM_ITS ---
Progress Note: A&P (1) Seizure: Status: Acute Assessment and Plan: This is a 70-year-old man with a history of dementia, mostly nonverbal admitted with new onset seizure and community-acquired pneumonia.? Patient lives with his daughter and is full care. Seizure, new onset Seen by neurology, thought to be secondary to dementia. Attempted EEG, patient unable to cooperate.? Can consider outpatient EEG in future -continue Keppra 500mg BID -Seizure precautions -follow-up with neurology after discharge Community-acquired pneumonia Improving. Afebrile, leukocytosis resolved -continue IV Rocephin, azithromycin -Blood cultures negative Dysphagia. Seen by tanisha Rec ground mechanical diet with thin liqs and pills crushed in puree Lactic acidosis.? Resolved Likely secondary to seizure not sepsis Received 30 mL/kg IV fluid bolus Hypertension Blood pressure controlled -Continue amlodipine Dementia -Continue Aricept, seroquel Hyperlipidemia -Continue statin Fecal impaction seen on initial CT of abdomen - documented to have more then one BM since CT done. Abdomen soft, appears non-tender DVT prophylaxis with Lovenox Full code DISPO dc to [facility] next week Attending: Dr. Robledo Subjective Subjective Date of Service: 03/08/21 Interval History: Follow up seizure [facility] Physical Exam Vital Signs: Vital Signs: Last Vital Signs Temp 97.9 F 03/08/21 07:21 Pulse 82 03/08/21 08:30 Resp 19 03/08/21 07:21 BP 133/72 03/08/21 08:30 Pulse Ox 95 03/08/21 07:21 Body Mass Index 20.5 Appearing in no acute distress, sleeping lung sounds are clear to auscultation heart regular rate rhythm, clear S1, S2 positive bowel sounds, abdomen is soft, nontender neuro patient is asleep Objective Data Current Medications Generic Name Dose Route Start Last Admin Trade Name Freq PRN Reason Stop Dose Admin Acetaminophen 650 mg 03/04/21 16:42 Acetaminophen 325 Mg Tablet PO Q6H PRN Pain, Mild (Pain Scale 1-3) Amlodipine Besylate 5 mg 03/05/21 09:00 03/08/21 08:30 Amlodipine Besylate 5 Mg Tablet PO 5 mg DAILY FIOR Administration Protocol Atorvastatin Calcium 20 mg 03/05/21 09:00 03/08/21 08:30 Atorvastatin Calcium 20 Mg Tablet PO 20 mg DAILY FIOR Administration Donepezil HCl 10 mg 03/05/21 09:00 03/08/21 08:31 Donepezil Hcl 10 Mg Tablet PO 10 mg DAILY FIOR Administration Enoxaparin Sodium 40 mg 03/05/21 13:00 03/07/21 16:11 Enoxaparin Sodium 40 Mg/0.4 Ml Syringe SUBCUT 40 mg Q24H FIOR Administration Ceftriaxone Sodium 1 gm/ 50 mls @ 100 mls/hr 03/05/21 16:00 03/07/21 18:14 Sodium Chloride IV Infused Q24H FIOR Infusion Azithromycin 500 mg/ Sodium 250 mls @ 125 mls/hr 03/05/21 16:00 03/07/21 18:14 Chloride IV Infused Q24H FIOR Infusion Levetiracetam 500 mg 03/06/21 09:00 03/08/21 08:31 Levetiracetam 500 Mg Tablet PO 500 mg BID FIOR Administration Lorazepam 1 mg 03/04/21 16:42 Lorazepam 2 Mg/Ml Vial IVPUSH Q2H PRN seizure activity Ondansetron HCl 4 mg 03/04/21 16:42 Ondansetron Hcl 4 Mg/2 Ml Vial IVPUSH Q8H PRN Nausea and Vomiting Quetiapine Fumarate 25 mg 03/05/21 09:00 03/08/21 08:31 Quetiapine Fumarate 25 Mg Tablet PO 25 mg DAILY FIOR Administration Sodium Chloride 3 ml 03/05/21 00:00 03/08/21 08:31 0.9 % Sodium Chloride Flush 3 Ml Syringe IVFLUSH 3 ml QSHIFT FIOR Administration Vitamin D 50 mcg 03/05/21 09:00 03/08/21 08:30 Cholecalciferol (Vitamin D3) 25 Mcg Tablet PO 50 mcg DAILY FIOR Administration Labs CBC & Chem 7: 03/07/21 06:11 03/07/21 06:11 Labs: Laboratory Results - last 24 hr 03/07/21 12:28 COVID-19 ([facility]) Negative COVID-19 Clin Com See Note Microbiology Microbiology Results: Microbiology 03/04/21 15:56 Blood - Venous Blood Culture - Preliminary No growth after 48 hours. 03/04/21 15:51 Blood - Venous Blood Culture - Preliminary No growth after 48 hours. Quality Stroke Does the patient have a stroke diagnosis?: No VTE Prior VTE?: No VTE Risk Level:: Medical - moderate - high VTE Device Contraindication: Treatment Not Indicated VTE Drug Contraindication: N/A - Med Ordered
[2021-03-08] MEDS: Enoxaparin Sodium 40 MG/0.4 ML SYRINGE SUBCUT (12:31)
[2021-03-08] MEDS: cefTRIAXone sodium 1 GM in 0.9 % Sodium Chloride 50 ML IV (15:25)
[2021-03-08] MEDS: Azithromycin 500 MG in 0.9 % Sodium Chloride 250 ML 125 MG IV (16:25)
[2021-03-09] VITALS (7 sets, daily range): BP systolic 106–154; BP diastolic 62–86; PULSE 57–72; RESP 16–18; TEMP 36.1–37; O2SAT 96–99
--- NOTE | 2021-03-09 09:23 | P.PNIM_ITS ---
Progress Note: A&P (1) Seizure: Status: Acute (2) Pneumonia: Status: Acute Assessment and Plan: This is a 70-year-old man with a history of dementia, mostly nonverbal admitted with new onset seizure and community-acquired pneumonia.? Patient lives with his daughter and is full care. Seizure, new onset. no seizure activity since admission Seen by neurology, thought to be secondary to dementia. Attempted EEG, patient unable to cooperate.? Can consider outpatient EEG in future -continue Keppra 500mg BID -Seizure precautions -follow-up with neurology after discharge Community-acquired pneumonia Improving. Afebrile, leukocytosis resolved -continue IV Rocephin, azithromycin -Blood cultures negative Dysphagia. Seen by speech Rec ground mechanical diet with thin liqs and pills crushed in puree Lactic acidosis.? Resolved Likely secondary to seizure not sepsis Received 30 mL/kg IV fluid bolus Hypertension Blood pressure controlled -Continue amlodipine Dementia -Continue Aricept, seroquel Hyperlipidemia -Continue statin Fecal impaction seen on initial CT of abdomen - documented to have more then one BM since CT done. Abdomen soft, appears non-tender DVT prophylaxis with Lovenox Full code DISPO dc to [facility] next week Subjective Subjective Date of Service: 03/09/21 Interval History: Follow up seizures no seizure activity since admission sleeping now Physical Exam Vital Signs: Vital Signs: Last Vital Signs Temp 98.6 F 03/09/21 07:40 Pulse 59 03/09/21 07:40 Resp 18 03/09/21 07:40 BP 154/67 H 03/09/21 07:40 Pulse Ox 99 03/09/21 07:40 Body Mass Index 20.5 Appearing in no acute distress lung sounds are clear to auscultation heart regular rate rhythm, clear S1, S2 positive bowel sounds, abdomen is soft, nontender neuro patient sleeping Objective Data Current Medications Generic Name Dose Route Start Last Admin Trade Name Freq PRN Reason Stop Dose Admin Acetaminophen 650 mg 03/04/21 16:42 Acetaminophen 325 Mg Tablet PO Q6H PRN Pain, Mild (Pain Scale 1-3) Amlodipine Besylate 5 mg 03/05/21 09:00 03/08/21 08:30 Amlodipine Besylate 5 Mg Tablet PO 5 mg DAILY FIOR Administration Protocol Atorvastatin Calcium 20 mg 03/05/21 09:00 03/08/21 08:30 Atorvastatin Calcium 20 Mg Tablet PO 20 mg DAILY FIOR Administration Donepezil HCl 10 mg 03/05/21 09:00 03/08/21 08:31 Donepezil Hcl 10 Mg Tablet PO 10 mg DAILY FIOR Administration Enoxaparin Sodium 40 mg 03/05/21 13:00 03/08/21 12:31 Enoxaparin Sodium 40 Mg/0.4 Ml Syringe SUBCUT 40 mg Q24H FIOR Administration Ceftriaxone Sodium 1 gm/ 50 mls @ 100 mls/hr 03/05/21 16:00 03/08/21 16:14 Sodium Chloride IV Infused Q24H FIOR Infusion Azithromycin 500 mg/ Sodium 250 mls @ 125 mls/hr 03/05/21 16:00 03/08/21 19:19 Chloride IV Infused Q24H FIOR Infusion Levetiracetam 500 mg 03/06/21 09:00 03/08/21 21:09 Levetiracetam 500 Mg Tablet PO 500 mg BID FIOR Administration Lorazepam 1 mg 03/04/21 16:42 Lorazepam 2 Mg/Ml Vial IVPUSH Q2H PRN seizure activity Ondansetron HCl 4 mg 03/04/21 16:42 Ondansetron Hcl 4 Mg/2 Ml Vial IVPUSH Q8H PRN Nausea and Vomiting Quetiapine Fumarate 25 mg 03/05/21 09:00 03/08/21 08:31 Quetiapine Fumarate 25 Mg Tablet PO 25 mg DAILY FIOR Administration Sodium Chloride 3 ml 03/05/21 00:00 03/08/21 21:15 0.9 % Sodium Chloride Flush 3 Ml Syringe IVFLUSH 3 ml QSHIFT FIOR Administration Vitamin D 50 mcg 03/05/21 09:00 03/08/21 08:30 Cholecalciferol (Vitamin D3) 25 Mcg Tablet PO 50 mcg DAILY FIOR Administration Labs CBC & Chem 7: 03/07/21 06:11 03/07/21 06:11 Microbiology Microbiology Results: Microbiology 03/04/21 15:56 Blood - Venous Blood Culture - Preliminary No growth after 48 hours. 03/04/21 15:51 Blood - Venous Blood Culture - Preliminary No growth after 48 hours. Quality Stroke Does the patient have a stroke diagnosis?: No VTE Prior VTE?: No VTE Risk Level:: Medical - moderate - high VTE Device Contraindication: Treatment Not Indicated VTE Drug Contraindication: N/A - Med Ordered
[2021-03-09] MEDS: Cholecalciferol (Vitamin D3) 25 MCG TABLET 50 MCG PO (10:21)
[2021-03-09] MEDS: Donepezil HCl 10 MG TABLET PO (10:21)
[2021-03-09] MEDS: levETIRAcetam 500 MG TABLET PO ×2 (10:21→20:35)
[2021-03-09] MEDS: Atorvastatin Calcium 20 MG TABLET PO (10:21)
[2021-03-09] MEDS: QUEtiapine Fumarate 25 MG TABLET PO (10:21)
[2021-03-09] MEDS: 0.9 % Sodium Chloride Flush 3 ML SYRINGE IVFLUSH ×3 (10:22→20:35)
[2021-03-09] MEDS: amLODIPine Besylate 5 MG TABLET PO (10:22)
[2021-03-09] MEDS: Enoxaparin Sodium 40 MG/0.4 ML SYRINGE SUBCUT (12:59)
[2021-03-09] MEDS: cefTRIAXone sodium 1 GM in 0.9 % Sodium Chloride 50 ML IV (15:53)
[2021-03-09] MEDS: Azithromycin 500 MG in 0.9 % Sodium Chloride 250 ML 125 MG IV (17:41)
--- NOTE | 2021-03-10 | EEG_ITS ---
The waking background activity consists of a diffuse theta of 4 to 5 hertz, intermixed with muscle artifacts anteriorly. Photic stimulation and hyperventilation were omitted. No paroxysmal features identified. IMPRESSION: This is an abnormal EEG due to moderately severe diffuse background slowing consistent with a diffuse encephalopathic process. MD GONSALO Maurer/DANA / [phone]
[2021-03-10 03:36] VITALS: BP 154/80; PULSE 68; RESP 16; TEMP 36.4; O2SAT 98
[2021-03-10 07:46] VITALS: BP 133/80; PULSE 75; RESP 19; TEMP 36.9; O2SAT 99
[2021-03-10] MEDS: Atorvastatin Calcium 20 MG TABLET PO (08:28)
[2021-03-10] MEDS: levETIRAcetam 500 MG TABLET PO (08:28)
[2021-03-10 08:29] VITALS: BP 133/80; PULSE 75
[2021-03-10] MEDS: Cholecalciferol (Vitamin D3) 25 MCG TABLET 50 MCG PO (08:29)
[2021-03-10] MEDS: amLODIPine Besylate 5 MG TABLET PO (08:29)
[2021-03-10] MEDS: QUEtiapine Fumarate 25 MG TABLET PO (08:29)
[2021-03-10] MEDS: 0.9 % Sodium Chloride Flush 3 ML SYRINGE IVFLUSH ×3 (08:29→21:26)
[2021-03-10] MEDS: Donepezil HCl 10 MG TABLET PO (08:29)
[2021-03-10 11:39] VITALS: BP 123/82; PULSE 94; RESP 18; TEMP 35.8; O2SAT 99
[2021-03-10] MEDS: Enoxaparin Sodium 40 MG/0.4 ML SYRINGE SUBCUT (12:50)
--- NOTE | 2021-03-10 13:51 | PM.IMPN ---
Progress Note: A&P (1) Seizure: Status: Acute (2) Pneumonia: Status: Acute Assessment and Plan: This is a 70-year-old man with a history of dementia, mostly nonverbal admitted with new onset seizure and community-acquired pneumonia.? Patient lives with his daughter and is full care. Seizure, new onset. no seizure activity since admission Seen by neurology, thought to be secondary to dementia. Attempted EEG, patient unable to cooperate.? Can consider outpatient EEG in future -decrease keppra to 250mg BID due to sleepiness -Seizure precautions -follow-up with neurology after discharge Community-acquired pneumonia Improving. Afebrile, leukocytosis resolved -continue IV Rocephin, azithromycin -Blood cultures negative Dysphagia. Seen by speech Rec ground mechanical diet with thin liqs and pills crushed in puree Lactic acidosis.? Resolved Likely secondary to seizure not sepsis Received 30 mL/kg IV fluid bolus Hypertension Blood pressure controlled -Continue amlodipine Dementia -Continue Aricept, seroquel Hyperlipidemia -Continue statin Fecal impaction seen on initial CT of abdomen - documented to have more then one BM since CT done. Abdomen soft, appears non-tender DVT prophylaxis with Lovenox Full code [facility] Subjective Subjective Date of Service: 03/10/21 Interval History: Follow up seizures sleepy no seizures Physical Exam Vital Signs: Vital Signs: Last Vital Signs Temp 96.4 F L 03/10/21 11:39 Pulse 94 03/10/21 11:39 Resp 18 03/10/21 11:39 BP 123/82 03/10/21 11:39 Pulse Ox 99 03/10/21 11:39 Body Mass Index 20.5 Appearing in no acute distress lung sounds are clear to auscultation heart regular rate rhythm, clear S1, S2 positive bowel sounds, abdomen is soft, nontender neuro patient is sleeping Objective Data Current Medications Generic Name Dose Route Start Last Admin Trade Name Freq PRN Reason Stop Dose Admin Acetaminophen 650 mg 03/04/21 16:42 Acetaminophen 325 Mg Tablet PO Q6H PRN Pain, Mild (Pain Scale 1-3) Amlodipine Besylate 5 mg 03/05/21 09:00 03/10/21 08:29 Amlodipine Besylate 5 Mg Tablet PO 5 mg DAILY FIOR Administration Protocol Atorvastatin Calcium 20 mg 03/05/21 09:00 03/10/21 08:28 Atorvastatin Calcium 20 Mg Tablet PO 20 mg DAILY FIOR Administration Donepezil HCl 10 mg 03/05/21 09:00 03/10/21 08:29 Donepezil Hcl 10 Mg Tablet PO 10 mg DAILY FIOR Administration Enoxaparin Sodium 40 mg 03/05/21 13:00 03/10/21 12:50 Enoxaparin Sodium 40 Mg/0.4 Ml Syringe SUBCUT 40 mg Q24H FIOR Administration Ceftriaxone Sodium 1 gm/ 50 mls @ 100 mls/hr 03/05/21 16:00 03/09/21 17:47 Sodium Chloride IV Infused Q24H FIOR Infusion Azithromycin 500 mg/ Sodium 250 mls @ 125 mls/hr 03/05/21 16:00 03/09/21 19:45 Chloride IV Infused Q24H FIOR Infusion Levetiracetam 500 mg 03/06/21 09:00 03/10/21 08:28 Levetiracetam 500 Mg Tablet PO 500 mg BID FIOR Administration Ondansetron HCl 4 mg 03/04/21 16:42 Ondansetron Hcl 4 Mg/2 Ml Vial IVPUSH Q8H PRN Nausea and Vomiting Quetiapine Fumarate 25 mg 03/05/21 09:00 03/10/21 08:29 Quetiapine Fumarate 25 Mg Tablet PO 25 mg DAILY FIOR Administration Sodium Chloride 3 ml 03/05/21 00:00 03/10/21 08:29 0.9 % Sodium Chloride Flush 3 Ml Syringe IVFLUSH 3 ml QSHIFT FIOR Administration Vitamin D 50 mcg 03/05/21 09:00 03/10/21 08:29 Cholecalciferol (Vitamin D3) 25 Mcg Tablet PO 50 mcg DAILY FIOR Administration Labs CBC & Chem 7: 03/07/21 06:11 03/07/21 06:11 Microbiology Microbiology Results: Microbiology 03/04/21 15:56 Blood - Venous Blood Culture - Final No growth after 5 days. 03/04/21 15:51 Blood - Venous Blood Culture - Final No growth after 5 days. Quality Stroke Does the patient have a stroke diagnosis?: No VTE Prior VTE?: No VTE Risk Level:: Medical - moderate - high VTE Device Contraindication: Treatment Not Indicated VTE Drug Contraindication: N/A - Med Ordered
[2021-03-10 15:31] VITALS: BP 112/85; PULSE 78; RESP 18; TEMP 36.6; O2SAT 95
[2021-03-10] MEDS: cefTRIAXone sodium 1 GM in 0.9 % Sodium Chloride 50 ML IV (15:36)
[2021-03-10] MEDS: Azithromycin 500 MG in 0.9 % Sodium Chloride 250 ML 125 MG IV (16:29)
[2021-03-10 19:31] VITALS: BP 124/78; PULSE 76; RESP 18; TEMP 36.6; O2SAT 92
[2021-03-10] MEDS: levETIRAcetam 250 MG TABLET PO (21:26)
[2021-03-11] VITALS (8 sets, daily range): BP systolic 118–142; BP diastolic 64–82; PULSE 66–87; RESP 18–19; TEMP 36.1–37.1; O2SAT 98–100
[2021-03-11 06:48] LABS: Hematocrit 44.1 % (42-52); Hemoglobin 15.2 g/dl (14.0-18.0); Mean Corpuscular HGB Conc 34.5 g/dl (31.0-36.0); Mean Corpuscular Hemoglobin 27.8 pg (27.0-33.0); Mean Corpuscular Volume 80.8 fL (80-98); Mean Platelet Volume 9.5 fL (9.4-12.4); Platelet Count 226 X10*3/uL (160-400); Red Blood Count 5.46 X10*6/uL (4.60-5.80); Red Cell Distribution Width 14.6 % (11.0-16.0); White Blood Count 7.4 X10*3/uL (4.8-10.8)
[2021-03-11 07:09] LABS: Anion Gap 13 (12-20); Blood Urea Nitrogen 24 mg/dL (9-16); Calcium 9.2 mg/dL (8.4-10.2); Carbon Dioxide 24 mmol/L (22-29); Chloride 108 mmol/L (96-108); Creatinine Clr Calc Pharmacy 54.7; Estimated Glomerular Filt Rate > 60; Glucose Random 94 mg/dL (60-115); Potassium 4.2 mmol/L (3.3-5.1); Sodium 141 mmol/L (135-145)
[2021-03-11] MEDS: Donepezil HCl 10 MG TABLET PO (10:31)
[2021-03-11] MEDS: QUEtiapine Fumarate 25 MG TABLET PO (10:31)
[2021-03-11] MEDS: Atorvastatin Calcium 20 MG TABLET PO (10:31)
[2021-03-11] MEDS: Cholecalciferol (Vitamin D3) 25 MCG TABLET 50 MCG PO (10:31)
[2021-03-11] MEDS: amLODIPine Besylate 5 MG TABLET PO (10:31)
[2021-03-11] MEDS: levETIRAcetam 250 MG TABLET PO ×2 (10:31→21:45)
[2021-03-11] MEDS: 0.9 % Sodium Chloride Flush 3 ML SYRINGE IVFLUSH ×3 (10:31→21:45)
--- NOTE | 2021-03-11 10:31 | PM.IMPN ---
Progress Note: A&P (1) Seizure: Status: Acute (2) Pneumonia: Status: Acute Assessment and Plan: This is a 70-year-old man with a history of dementia, mostly nonverbal admitted with new onset seizure and community-acquired pneumonia.? Patient lives with his daughter and is full care. Seizure, new onset. no seizure activity since admission Seen by neurology, thought to be secondary to dementia. Attempted EEG, patient unable to cooperate.? Can consider outpatient EEG in future -decrease keppra to 250mg BID due to sleepiness -Seizure precautions -follow-up with neurology after discharge Community-acquired pneumonia Improving. Afebrile, leukocytosis resolved -continue IV Rocephin, azithromycin, started 03/05/21, 10 days course -Blood cultures negative Dysphagia. Seen by speech Rec ground mechanical diet with thin liqs and pills crushed in puree Lactic acidosis.? Resolved Likely secondary to seizure not sepsis Received 30 mL/kg IV fluid bolus Hypertension Blood pressure controlled -Continue amlodipine Dementia -Continue Aricept, seroquel Hyperlipidemia -Continue statin Fecal impaction seen on initial CT of abdomen - documented to have more then one BM since CT done. Abdomen soft, appears non-tender DVT prophylaxis with Lovenox Full code [facility] Subjective Subjective Date of Service: 03/11/21 Interval History: Follow up seizures no seziure activity not as sleepy today Physical Exam Vital Signs: Vital Signs: Last Vital Signs Temp 98.1 F 03/11/21 08:00 Pulse 87 03/11/21 10:31 Resp 18 03/11/21 08:00 BP 128/72 03/11/21 10:31 Pulse Ox 100 03/11/21 08:00 Body Mass Index 20.5 Appearing in no acute distress lung sounds are clear to auscultation heart regular rate rhythm, clear S1, S2 positive bowel sounds, abdomen is soft, nontender neuro patient sleeping, opens eyes Objective Data Current Medications Generic Name Dose Route Start Last Admin Trade Name Freq PRN Reason Stop Dose Admin Acetaminophen 650 mg 03/04/21 16:42 Acetaminophen 325 Mg Tablet PO Q6H PRN Pain, Mild (Pain Scale 1-3) Amlodipine Besylate 5 mg 03/05/21 09:00 03/11/21 10:31 Amlodipine Besylate 5 Mg Tablet PO 5 mg DAILY FIOR Administration Protocol Atorvastatin Calcium 20 mg 03/05/21 09:00 03/11/21 10:31 Atorvastatin Calcium 20 Mg Tablet PO 20 mg DAILY FIOR Administration Donepezil HCl 10 mg 03/05/21 09:00 03/11/21 10:31 Donepezil Hcl 10 Mg Tablet PO 10 mg DAILY FIOR Administration Enoxaparin Sodium 40 mg 03/05/21 13:00 03/10/21 12:50 Enoxaparin Sodium 40 Mg/0.4 Ml Syringe SUBCUT 40 mg Q24H FIOR Administration Ceftriaxone Sodium 1 gm/ 50 mls @ 100 mls/hr 03/05/21 16:00 03/10/21 16:09 Sodium Chloride IV Infused Q24H FIOR Infusion Azithromycin 500 mg/ Sodium 250 mls @ 125 mls/hr 03/05/21 16:00 03/10/21 18:52 Chloride IV Infused Q24H FIOR Infusion Levetiracetam 250 mg 03/10/21 21:00 03/11/21 10:31 Levetiracetam 250 Mg Tablet PO 250 mg BID FIOR Administration Ondansetron HCl 4 mg 03/04/21 16:42 Ondansetron Hcl 4 Mg/2 Ml Vial IVPUSH Q8H PRN Nausea and Vomiting Quetiapine Fumarate 25 mg 03/05/21 09:00 03/11/21 10:31 Quetiapine Fumarate 25 Mg Tablet PO 25 mg DAILY FIOR Administration Sodium Chloride 3 ml 03/05/21 00:00 03/11/21 10:31 0.9 % Sodium Chloride Flush 3 Ml Syringe IVFLUSH 3 ml QSHIFT FIOR Administration Vitamin D 50 mcg 03/05/21 09:00 03/11/21 10:31 Cholecalciferol (Vitamin D3) 25 Mcg Tablet PO 50 mcg DAILY FIOR Administration Labs CBC & Chem 7: 03/11/21 05:38 03/11/21 05:38 Labs: Laboratory Results - last 24 hr 03/11/21 03/11/21 05:38 05:38 MCV 80.8 MCH 27.8 MCHC 34.5 RDW 14.6 Plt Count 226 D MPV 9.5 Absolute Nucleated RBC 0.000 Nucleated RBC % (auto) 0.0 Anion Gap 13 Estim Creat Clear Calc 54.7 Estimated GFR > 60 Random Glucose 94 Calcium 9.2 Microbiology Microbiology Results: Microbiology 03/04/21 15:56 Blood - Venous Blood Culture - Final No growth after 5 days. 03/04/21 15:51 Blood - Venous Blood Culture - Final No growth after 5 days. Quality Stroke Does the patient have a stroke diagnosis?: No VTE Prior VTE?: No VTE Risk Level:: Medical - moderate - high VTE Device Contraindication: Treatment Not Indicated VTE Drug Contraindication: N/A - Med Ordered
[2021-03-11] MEDS: Enoxaparin Sodium 40 MG/0.4 ML SYRINGE SUBCUT (14:18)
--- NOTE | 2021-03-11 14:28 | P.DS_ITS ---
DS: Providers Provider Date of Service: 03/11/21 Date of admission: 03/04/21 16:46 Primary care physician: Unknown Physician Consults: 03/04/21 16:42 Consult to Neurology Routine Consulting Provider: [facility] Reason for consultation: seizure Has provider been notified: No DS: Diagnosis Discharge Diagnosis (1) Seizure: Status: Acute (2) Pneumonia: Status: Acute DS: Summary Hospital Course Hospital Course: From H&P on day of admission This is a 70 year old man presenting after seizure home.? According to the patient's daughter who was present during the interview the patient was being fed by his other daughter and suddenly became very stiff and started shaking.? She is unsure if there was any loss of bowel or bladder.? He was brought to the ER.? Recently had not been sick.? He has a history of dementia, requires full care therefore he is unable to give any information during the interview.? It appeared on CT scan that the patient had a pneumonia and he was going to be sent home on oral antibiotics however just prior to that he had a tonic-clonic seizure in the ER and was given lorazepam and Keppra.? His lactic acid was elevated at 0.4 and this was likely related to the seizure as well as he tachycardia tachypnea and hypertension at that time.? Just prior to that the patient had not presented with any fever tachycardia or hypertension.? He was also started on Rocephin and azithromycin for seizure.? Will be admitted for further management and treatment of acute seizure and community-acquired pneumonia. New onset Seizure.? Brain CT was done and showed no acute intracranial pathology It showed chronic micoangiopathy. He was seen by neurology who felt that the seizure may be secondary to dementia. They recommended keppra and EEG. EEG was attempted but the patient was unable to cooperate for study. He had no further seizure activity following admission. He will be discharged home with Keppra 500 mg b.i.d.. He should call to schedule follow-up appointment with Neurology. EEG may be attempted as outpatient. Pneumonia. Possibly secondary to aspiration. Patient was started on IV ceftriaxone and azithromycin. He is not currently requiring any oxygen and has remained afebrile. He has completed the entire course of antibiotics during hospital stay. Lactic acidosis.?Initially lactic acid was elevated and likely secondary to seizure. This resolved with IVF. Dysphagia. Pt was evaluated by speech who recommended ground mechanical diet with thin liquids and pills crushed in puree. Time Spent with Patient Time attestation: Total time spent providing and/or coordinating discharge services: Discharge coordination time: Greater than 30 minutes Quality: Stroke Does the patient have a stroke diagnosis?: No Physical Exam Vital Signs: Vital Signs: Last Vital Signs Temp 97.0 F 03/11/21 12:00 Pulse 72 03/11/21 12:00 Resp 19 03/11/21 12:00 BP 119/71 03/11/21 12:00 Pulse Ox 99 03/11/21 12:00 Body Mass Index 20.5 DS: Data Data Completed and Pending Labs on day of discharge: Laboratory Results - last 24 hr 03/11/21 03/11/21 05:38 05:38 WBC 7.4 RBC 5.46 Hgb 15.2 Hct 44.1 MCV 80.8 MCH 27.8 MCHC 34.5 RDW 14.6 Plt Count 226 D MPV 9.5 Absolute Nucleated RBC 0.000 Nucleated RBC % (auto) 0.0 Sodium 141 Potassium 4.2 Chloride 108 Carbon Dioxide 24 Anion Gap 13 BUN 24 H Creatinine 0.98 Estim Creat Clear Calc 54.7 Estimated GFR > 60 Random Glucose 94 Calcium 9.2 Discharge Plan Discharge Patient Disposition: er SNF Discharge Diagnosis: new onset seizure pneumonia Referrals: [facility] [Other] - 1 Week Jimena Alva MD [Physician] - 2 Weeks Physician,Unknown [Primary Care Provider] - 1 Week Discharge Medications: New levetiracetam 250 mg Tablet 250 mg PO BID 30 Days Qty: 60 RF: 0 quetiapine 25 mg Tablet 25 mg PO DAILY 1 Days Qty: 1 RF: 0 Continued donepezil 10 mg Tablet 10 mg PO DAILY RF: 0 amlodipine 5 mg Tablet 5 mg PO DAILY RF: 0 simvastatin 40 mg Tablet 20 mg PO DAILY RF: 0 cyanocobalamin (vitamin B-12) 500 mcg Tablet 500 mcg PO DAILY RF: 0 cholecalciferol (vitamin D3) 50 mcg (2,000 unit) Tablet 50 mcg PO DAILY RF: 0 lorazepam 0.5 mg Tablet 0.5 mg PO DAILY PRN (Reason: Anxiety) RF: 0 polyethylene glycol 3350 [Miralax] 17 gram/dose Powder 17 g PO DAILY PRN (Reason: Constipation) RF: 0 sertraline [Zoloft] 20 mg/mL Concentrate 100 mg PO DAILY RF: 0 melatonin 5 mg Tablet 10 mg PO BEDTIME RF: 0 Held mirtazapine 30 mg Tablet 30 mg PO BEDTIME RF: 0 Hold Instructions: held due to somnolence, can reeval and resume if indicated Discontinued quetiapine 25 mg Tablet 25 mg PO TID PRN (Reason: Agitation) RF: 0 melatonin 10 mg Tablet 10 mg PO DAILY PRN (Reason: SLEEP/IRRITABILITY) RF: 0 Discharge Orders: Discharge Order (Routine); Ordered 03/12/21 Ordered By: Alejandra Alfaro Activity on Discharge: As tolerated Stand Alone Forms: Patient Portal Discharge page Print Language: Citizen Of [place] Care Plan Goals: see below Health Concerns: pneumonia seizure dysphagia Plan of Treatment: Seizure - unable to cooperate with EEG. Has been started on keppra. Should schedule follow up appointment with neurology. Can re-attempt EEG as outpatient. Dysphagia - seen by speech, rec ground mechanical diet with thin liquids and pills crushed in puree. aspiration precautions pneumonia - completed course of antibiotics while in the hospital Assessment: see discharge summary Patient Instructions: Pneumonia (ED) Discharge Date/Time: 03/12/21 17:44
[2021-03-11] MEDS: cefTRIAXone sodium 1 GM in 0.9 % Sodium Chloride 50 ML IV (16:23)
[2021-03-11] MEDS: Azithromycin 500 MG in 0.9 % Sodium Chloride 250 ML 125 MG IV (17:09)
[2021-03-12 03:24] VITALS: BP 107/66; PULSE 66; RESP 18; TEMP 36.1; O2SAT 99
[2021-03-12 07:38] VITALS: BP 123/63; PULSE 66; RESP 16; TEMP 36.4; O2SAT 100
[2021-03-12 08:55] VITALS: BP 123/63; PULSE 66
[2021-03-12] MEDS: Donepezil HCl 10 MG TABLET PO (08:55)
[2021-03-12] MEDS: QUEtiapine Fumarate 25 MG TABLET PO (08:55)
[2021-03-12] MEDS: levETIRAcetam 250 MG TABLET PO (08:55)
[2021-03-12] MEDS: Cholecalciferol (Vitamin D3) 25 MCG TABLET 50 MCG PO (08:55)
[2021-03-12] MEDS: amLODIPine Besylate 5 MG TABLET PO (08:55)
[2021-03-12] MEDS: Atorvastatin Calcium 20 MG TABLET PO (08:55)
[2021-03-12] MEDS: 0.9 % Sodium Chloride Flush 3 ML SYRINGE IVFLUSH ×2 (08:55→14:10)
[2021-03-12 11:49] VITALS: BP 108/61; PULSE 73; RESP 16; TEMP 36.1; O2SAT 98
--- NOTE | 2021-03-12 12:28 | MHC.CLN ---
F/U DIET=2 GRAM SODIUM, GROUND/MECHANICALLY ALTERED (NDD2). INTAKE AT MEALS USUALLY 50-100%. NO NEW NUTRITION INTERVENTIONS.
--- NOTE | 2021-03-12 14:06 | P.PNIM_ITS ---
Subjective Subjective Date of Service: 03/12/21 Interval History: Seen and examined this morning follow up for seizures, pneumonia no overnight events, no seizure activity Review of Systems Review of Systems: Yes Unobtainable due to mental status Physical Exam Vital Signs: Vital Signs: Last Vital Signs Temp 96.9 F 03/12/21 11:49 Pulse 73 03/12/21 11:49 Resp 16 03/12/21 11:49 BP 108/61 03/12/21 11:49 Pulse Ox 98 03/12/21 11:49 Body Mass Index 20.5 Objective Data Current Medications Generic Name Dose Route Start Last Admin Trade Name Freq PRN Reason Stop Dose Admin Acetaminophen 650 mg 03/04/21 16:42 Acetaminophen 325 Mg Tablet PO Q6H PRN Pain, Mild (Pain Scale 1-3) Amlodipine Besylate 5 mg 03/05/21 09:00 03/12/21 08:55 Amlodipine Besylate 5 Mg Tablet PO 5 mg DAILY FIOR Administration Protocol Atorvastatin Calcium 20 mg 03/05/21 09:00 03/12/21 08:55 Atorvastatin Calcium 20 Mg Tablet PO 20 mg DAILY FIOR Administration Donepezil HCl 10 mg 03/05/21 09:00 03/12/21 08:55 Donepezil Hcl 10 Mg Tablet PO 10 mg DAILY FIOR Administration Enoxaparin Sodium 40 mg 03/05/21 13:00 03/11/21 14:18 Enoxaparin Sodium 40 Mg/0.4 Ml Syringe SUBCUT 40 mg Q24H FIOR Administration Ceftriaxone Sodium 1 gm/ 50 mls @ 100 mls/hr 03/05/21 16:00 03/11/21 17:09 Sodium Chloride IV Infused Q24H FIOR Infusion Azithromycin 500 mg/ Sodium 250 mls @ 125 mls/hr 03/05/21 16:00 03/11/21 19:20 Chloride IV Infused Q24H FIOR Infusion Levetiracetam 250 mg 03/10/21 21:00 03/12/21 08:55 Levetiracetam 250 Mg Tablet PO 250 mg BID FIOR Administration Ondansetron HCl 4 mg 03/04/21 16:42 Ondansetron Hcl 4 Mg/2 Ml Vial IVPUSH Q8H PRN Nausea and Vomiting Quetiapine Fumarate 25 mg 03/05/21 09:00 03/12/21 08:55 Quetiapine Fumarate 25 Mg Tablet PO 25 mg DAILY FIOR Administration Sodium Chloride 3 ml 03/05/21 00:00 03/12/21 08:55 0.9 % Sodium Chloride Flush 3 Ml Syringe IVFLUSH 3 ml QSHIFT FIOR Administration Vitamin D 50 mcg 03/05/21 09:00 03/12/21 08:55 Cholecalciferol (Vitamin D3) 25 Mcg Tablet PO 50 mcg DAILY FIOR Administration Labs CBC & Chem 7: 03/11/21 05:38 03/11/21 05:38 Assessment and Plan (1) Seizure: Status: Acute (2) Pneumonia: Status: Acute Assessment and Plan: This is a 70-year-old man with a history of dementia, mostly nonverbal admitted with new onset seizure and community-acquired pneumonia.? Patient lives with his daughter and is full care. Seizure, new onset. no seizure activity since admission Seen by neurology, thought to be secondary to dementia. Attempted EEG, patient unable to cooperate.? Can consider outpatient EEG in future -decrease keppra to 250mg BID due to sleepiness -Seizure precautions -follow-up with neurology after discharge Community-acquired pneumonia Improving. Afebrile, leukocytosis resolved -continue IV Rocephin, azithromycin, started 03/05/21, 10 days course -Blood cultures negative Dysphagia. Seen by speech Rec ground mechanical diet with thin liqs and pills crushed in puree Lactic acidosis.? Resolved Likely secondary to seizure not sepsis Received 30 mL/kg IV fluid bolus Hypertension Blood pressure controlled -Continue amlodipine Dementia -Continue Aricept, seroquel Hyperlipidemia -Continue statin Fecal impaction seen on initial CT of abdomen - documented to have more then one BM since CT done. Abdomen soft, appears non-tender DVT prophylaxis with Lovenox Full code attending: Dr. watson DISPO waiting for dc to [facility] Stroke Does the patient have a stroke diagnosis?: No VTE Prior VTE?: No VTE Risk Level:: Medical - moderate - high VTE Device Contraindication: Treatment Not Indicated VTE Drug Contraindication: N/A - Med Ordered
[2021-03-12] MEDS: Enoxaparin Sodium 40 MG/0.4 ML SYRINGE SUBCUT (14:10)
--- NOTE | 2021-03-12 15:12 | MHC.CM.PN ---
still no word from [facility] ,pt accepted at [facility] prefers that facility to [facility], as it is closer to home ,mds faxed to [facility] asked for covid from [facility] x2 wanted to wait for a definite bed till order the covid,
[2021-03-12] MEDS: cefTRIAXone sodium 1 GM in 0.9 % Sodium Chloride 50 ML IV (15:21)
[2021-03-12] MEDS: Azithromycin 500 MG in 0.9 % Sodium Chloride 250 ML 125 MG IV (15:21)
--- NOTE | 2021-03-12 15:23 | MHC.CM.PN ---
verification of covid vaccination just obtained from family and sent to [facility] explins they has ed copy upon admisison ..not in chart
[2021-03-12 15:30] VITALS: BP 120/60; PULSE 66; RESP 18; TEMP 36.2; O2SAT 100
--- NOTE | 2021-03-12 15:51 | MHC.CM.PN ---
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
[2021-03-12 16:24] LABS: COVID-19 Test Negative (Negative); IDNOW Serial# 9DD0AD1C
[2021-03-15 11:56] LABS: Levetiracetam Keppra 10.9 mcg/mL (12.0-46.0)
== END 2021-03-12 17:44 | disposition skilled nursing facility (03) | DRG 178 ==
LOC: HO.ED 15:10 → HO.EDOVER 16:57 → HO.IMC 16:57
PROVIDERS: Physician Assistant; Physician Assistant Medical; Admitting Provider Nurse Practitioner Acute Care; Emergency Provider Internal Medicine; Visit Provider Family Medicine
DX: J69.0 Pneumonitis due to inhalation of food and vomit (principal); E87.2 Acidosis; R56.9 Unspecified convulsions; Z20.822 Contact with and (suspected) exposure to COVID-19; F03.90 Unspecified dementia, unspecified severity, without behavioral disturbance, psychotic disturbance, mood disturbance, and anxiety; E78.5 Hyperlipidemia, unspecified; I10 Essential (primary) hypertension; R13.10 Dysphagia, unspecified; K56.41 Fecal impaction; Z79.899 Other long term (current) drug therapy
CPT/HCPCS: 36415; 70450; 71250; 74176; 80048; 80076; 80177; 81001; 81003; 82550; 82947; 83605; 83735; 84484; 85025; 85027; 87040; 87635; 92610; 93005; 95816; 96365; 96367; 96375; 99285; J0456; J0696; J1650; J1953; J2060

== ENCOUNTER 2021-03-27 18:31 | Emergency (ER) | payer OTHER, SELFPAY ==
--- NOTE | 2021-03-27 | ECG_ITS ---
Test Reason : AMS Blood Pressure : / mmHG Vent. Rate : 065 BPM Atrial Rate : 065 BPM P-R Int : 136 ms QRS Dur : 136 ms QT Int : 440 ms P-R-T Axes : 018 070 055 degrees QTc Int : 457 ms Normal sinus rhythm Right bundle branch block Abnormal ECG When compared with ECG of 04-MAR-2021 12:00, Heart rate has increased Referred By: Alverto Barber Electronically Signed By:MIGNON CORRALES
--- NOTE | ~2021-03-27 | XR_ITS ---
EXAMINATION: XR CHEST CLINICAL INFORMATION: Cough. COMPARISON: CT chest dated 03/04/2021. TECHNIQUE: Frontal view of the chest was obtained. FINDINGS: The lungs are clear. The cardiomediastinal silhouette is normal in size. There is no pleural effusion or pneumothorax. No acute osseous abnormality. XR/XR chest 1V IMPRESSION: No acute cardiopulmonary findings.
--- NOTE | ~2021-03-27 | CT_ITS ---
EXAMINATION: CT HEAD WITHOUT CONTRAST CLINICAL INFORMATION: Seizure versus CVA. COMPARISON: Most recent CT head dated 03/04/2021. TECHNIQUE: Contiguous axial imaging was performed from the skull base to vertex without intravenous administration of contrast. This CT examination was performed using dose optimization techniques as appropriate, variously including the following: *Automated exposure control *Adjustment of mA and/or kV according to patient size (this includes techniques or standardized protocols for targeted exams where dose is matched to indication/reason for exam; i.e. extremities or head) *Use of iterative reconstruction technique DLP: 715 mGy-cm FINDINGS: The ventricles and sulci are enlarged consistent with diffuse atrophy. No visualized masses or midline shift are seen. There is no intra-axial or extra-axial hemorrhage. There are no fluid collections. Decreased attenuation is seen in the periventricular white matter compatible with chronic small vessel ischemic disease. The tobar-white discrimination is preserved. The included paranasal sinuses and mastoid air cells are well aerated. The calvarium is intact. CT/CT head/brain wo con IMPRESSION: No intracranial hemorrhage or mass effect. Generalized atrophy and chronic small vessel white matter ischemic changes. No significant interval change.
[2021-03-27 19:07] VITALS: BP 117/68; BP 118/65; PULSE 62; PULSE 68; RESP 17; O2SAT 98; BMI 15.9
[2021-03-27 19:26] VITALS: TEMP 37.1
[2021-03-27 19:32] LABS: Glucose, Whole Blood 78 mg/dL (60-115)
--- NOTE | 2021-03-27 19:33 | ED_ITS ---
HPI - General Adult General Chief complaint: Seizure Stated complaint: ? seizure Time Seen by Provider: 03/27/21 19:12 Source: family Limitations: altered mental status History of Present Illness HPI narrative: Patient with history of severe dementia who is minimally verbal and nonambulatory, presents from home with generalized weakness. He also has had a right facial droop noticed this morning. It is improved since then. He was hospitalized approximately 4 weeks ago for a seizure at home. He was started on Keppra at that time. He was supposed to go to rehab/SNF, but there was a COVID-19 outbreak apparently there. So the family took him home and has been caring for him since. No shaking today. They state he has had aspiration in the past and her worried about that as that happened prior to his seizure. No difficulty breathing more than normal. No vomiting. no definitive fevers or chills although his apparently thought he felt warm today. Other complaints are decubitus ulcers on his sacrum. Redness and swollen around his penis. No other specific complaints. Family is worried about possible pneumonia, possible seizure. It is unclear if he had any extremity changes when he had the facial weakness. Related Data Home Medications Medication Instructions Recorded Confirmed amlodipine 5 mg tablet 5 mg PO DAILY 03/04/21 03/27/21 cholecalciferol (vitamin D3) 50 50 mcg PO DAILY 03/04/21 03/27/21 mcg (2,000 unit) tablet cyanocobalamin (vitamin B-12) 500 500 mcg PO DAILY 03/04/21 03/27/21 mcg tablet donepezil 10 mg tablet 10 mg PO BEDTIME 03/04/21 03/27/21 lorazepam 0.5 mg tablet 0.5 mg PO DAILY PRN 03/04/21 03/27/21 melatonin 5 mg tablet 10 mg PO BEDTIME 03/04/21 03/27/21 mirtazapine 30 mg tablet 30 mg PO BEDTIME 03/04/21 03/27/21 sertraline 20 mg/mL oral 100 mg PO DAILY 03/04/21 03/27/21 concentrate (Zoloft) simvastatin 40 mg tablet 20 mg PO DAILY 03/04/21 03/27/21 quetiapine 25 mg tablet 25 mg PO BID 03/27/21 03/27/21 Previous Rx's Medication Instructions Recorded levetiracetam 250 mg tablet 250 mg PO BID 30 Days #60 tab 03/12/21 lorazepam 0.5 mg tablet 0.5 mg PO BEDTIME PRN #14 tab 03/27/21 Allergies Allergy/AdvReac Type Severity Reaction Status Date / Time No Known Allergies Allergy Verified 03/27/21 19:27 [No Known Allergies*] Review of Systems Review of Systems: Other review of systems are unobtainable as patient is not communicative secondary to advanced dementia. He is at his baseline Constitutional: Comments: Tactile temperature per but no documented fevers Eyes: Comments: Right eye with conjunctival erythema and discharge earlier today per his daughter. None now Neurologic: Comments: Right facial droop, resolved PMFSH Past Medical History PMFSH Narrative: No sick contacts the daughter knows of. He is immunized against COVID-19 Medical History (Updated 03/27/21 @ 21:58 by Alverto Barber MD) Dementia Hyperlipidemia Hypertension Social History Social History Household Members: Spouse and Family Housing: Apartment Do you presently have visiting nurse or other home services: Yes (per daughter, associate professor of law and house visits) Patient Tobacco Use Status: Never used Tobacco Advance Directives: No Advance Directives Information Provided: No service: Yes Current occupational status: retired Physical Exam Vital Signs: Vital Signs: Last Vital Signs Temp 976 F H 03/27/21 21:44 Pulse 60 03/27/21 21:44 Resp 15 03/27/21 21:44 BP 112/67 03/27/21 21:44 Pulse Ox 97 03/27/21 21:44 Body Mass Index 15.9 Const: Other: Patient is awake and mumbles. No comprehensible in which. No specific signs of distress Eyes: Other: Mild right-sided conjunctival erythema without discharge at the moment Resp: Other: Mildly diminished bilaterally without obvious wheezes rales or rhonchi Cardio: Other: Regular rate and rhythm without murmurs rubs or gallops GI: Other: S abdomen flat soft nontender. : Other: Penis with some mild balanitis and erythema. Likely candidal balanitis Skin: Other: Mild stage I decubitus ulcers to bilateral proximal sacral area. No purulent drainage. No surrounding erythema it is dry and powdered Neuro: Other: Patient with bilateral equal rigidity. Unable to cooperate with exam due to mental status. No obvious focal defect. Extrem: Other: No obvious musculoskeletal trauma Course Course Course Narrative: The patient with transient right facial droop. Differential would include TIA versus seizure disorder. Rule out other exacerbating factors such as pneumonia, aspiration, UTI, electrolyte abnormality. Candidal balanitis Right eye conjunctivitis IV fluids ordered. Nystatin for candidal balanitis ordered Dilatation for right eye conjunctivitis Patient is a full code at the moment. The daughter states they may be changing this at some point soon. 9:14 p.m.. Lab work is unremarkable. CT scan shows no acute hemorrhage or significant interval change. Chest x-ray without infiltrate. I discussed these results with his daughter. They are trying to get him into a specific penitentiary but are having insurance issues at the moment. I will have a load builder consult to see if there is any additional help we can offer 9:56 p.m.. Has spoke with his other daughter was also a senior mechanical engineer. They have social Service at home and it is likely we have no other Services to offer. She would rather take him home at this point is medically there is no obvious acute finding. She does request something to help him sleep. Given his seizure disorder, will stay away from haloperidol, but will prescribe a low-dose lorazepam. Medical Decision Making Lab Data Result diagrams: 03/27/21 20:12 03/27/21 20:12 Labs: Lab Results 03/27/21 03/27/21 03/27/21 Range/Units 19:03 20:07 20:12 WBC (4.8-10.8) X10*3/uL RBC (4.60-5.80) X10*6/uL Hgb (14.0-18.0) g/dl Hct (42-52) % MCV (80-98) fL MCH (27.0-33.0) pg MCHC (31.0-36.0) g/dl RDW (11.0-16.0) % Plt Count (160-400) X10*3/uL MPV (9.4-12.4) fL Immature Gran % (Auto) (0.0-0.4) % Neut % (Auto) (45-73) % Lymph % (Auto) (20-40) % [place] % (Auto) (2-11) % Eos % (Auto) (0-4) % Baso % (Auto) (0-2) % Lymph # (Auto) (1.2-4.9) X10*3/uL [place] # (Auto) (0.1-1.2) X10*3/uL Eos # (Auto) (0.0-0.4) X10*3/uL Baso # (Auto) (0.0-0.2) X10*3/uL Abs Immat Gran (auto) (0.00-0.03) X10*3/uL Absolute Neuts (auto) (2.0-8.3) X10*3/uL Absolute Nucleated RBC (0.0-0.012) X10*3/uL Nucleated RBC % (auto) (0.0-0.2) /100WBC Sodium 142 (135-145) mmol/L Potassium 4.6 (3.3-5.1) mmol/L Chloride 109 H (96-108) mmol/L Carbon Dioxide 26 (22-29) mmol/L Anion Gap 12 (12-20) BUN 19 H (9-16) mg/dL Creatinine 0.93 (0.5-1.4) mg/dL Estim Creat Clear Calc 48.1 Estimated GFR > 60 POC Glucose 78 (60-115) mg/dL Random Glucose 97 (60-115) mg/dL Calcium 9.3 (8.4-10.2) mg/dL Total Bilirubin 0.7 (0.0-1.0) mg/dL AST 14 (5-37) U/L ALT 21 (0-40) U/L Alkaline Phosphatase 167 H D (39-117) U/L Ammonia (13-55) umol/L Total Protein 6.7 (6.5-8.0) g/dL Albumin 3.7 (3.5-5.0) g/dL Urine Color Urine Appearance Urine pH (5.0-8.0) Ur Specific [place] (1.005-1.025) Urine Protein (NEG-TRACE) MG/DL Urine Glucose (UA) (NEG) MG/DL Urine Ketones (NEG) MG/DL Urine Blood (NEG) Urine Nitrite (NEG) Ur Leukocyte Esterase (NEG) COVID-19 ([place]) Negative (Negative) COVID-19 Clin Com See Note 03/27/21 03/27/21 03/27/21 Range/Units 20:12 20:14 20:39 WBC 8.8 (4.8-10.8) X10*3/uL RBC 4.84 (4.60-5.80) X10*6/uL Hgb 13.6 L (14.0-18.0) g/dl Hct 40.0 L (42-52) % MCV 82.6 (80-98) fL MCH 28.1 (27.0-33.0) pg MCHC 34.0 (31.0-36.0) g/dl RDW 14.5 (11.0-16.0) % Plt Count 285 D (160-400) X10*3/uL MPV 8.8 L (9.4-12.4) fL Immature Gran % (Auto) 0.2 (0.0-0.4) % Neut % (Auto) 76.2 H (45-73) % Lymph % (Auto) 13.7 L (20-40) % [place] % (Auto) 8.2 (2-11) % Eos % (Auto) 1.5 (0-4) % Baso % (Auto) 0.2 (0-2) % Lymph # (Auto) 1.2 (1.2-4.9) X10*3/uL [place] # (Auto) 0.7 (0.1-1.2) X10*3/uL Eos # (Auto) 0.1 (0.0-0.4) X10*3/uL Baso # (Auto) 0.0 (0.0-0.2) X10*3/uL Abs Immat Gran (auto) 0.02 (0.00-0.03) X10*3/uL Absolute Neuts (auto) 6.7 (2.0-8.3) X10*3/uL Absolute Nucleated RBC 0.000 (0.0-0.012) X10*3/uL Nucleated RBC % (auto) 0.0 (0.0-0.2) /100WBC Sodium (135-145) mmol/L Potassium (3.3-5.1) mmol/L Chloride (96-108) mmol/L Carbon Dioxide (22-29) mmol/L Anion Gap (12-20) BUN (9-16) mg/dL Creatinine (0.5-1.4) mg/dL Estim Creat Clear Calc Estimated GFR POC Glucose (60-115) mg/dL Random Glucose (60-115) mg/dL Calcium (8.4-10.2) mg/dL Total Bilirubin (0.0-1.0) mg/dL AST (5-37) U/L ALT (0-40) U/L Alkaline Phosphatase (39-117) U/L Ammonia 28 (13-55) umol/L Total Protein (6.5-8.0) g/dL Albumin (3.5-5.0) g/dL Urine Color YELLOW Urine Appearance CLEAR Urine pH 6.0 (5.0-8.0) Ur Specific [place] >= 1.030 H (1.005-1.025) Urine Protein NEG (NEG-TRACE) MG/DL Urine Glucose (UA) 250 H (NEG) MG/DL Urine Ketones NEG (NEG) MG/DL Urine Blood NEG (NEG) Urine Nitrite NEG (NEG) Ur Leukocyte Esterase NEG (NEG) COVID-19 ([place]) (Negative) COVID-19 Clin Com Discharge Plan Discharge Clinical Impression: Seizure Dementia Qualifiers: Dementia type: Alzheimer's Patient Disposition: Home, Self-Care Instructions: Dementia (ED), Epilepsy in Older Adults (ED) Prescriptions: New lorazepam 0.5 mg tablet 0.5 mg PO BEDTIME PRN (Reason: agitation) Qty: 14 RF: 0 No Action donepezil 10 mg Tablet 10 mg PO BEDTIME RF: 0 amlodipine 5 mg Tablet 5 mg PO DAILY RF: 0 simvastatin 40 mg Tablet 20 mg PO DAILY RF: 0 cyanocobalamin (vitamin B-12) 500 mcg Tablet 500 mcg PO DAILY RF: 0 mirtazapine 30 mg Tablet 30 mg PO BEDTIME RF: 0 Hold Instructions: held due to somnolence, can reeval and resume if indicated cholecalciferol (vitamin D3) 50 mcg (2,000 unit) Tablet 50 mcg PO DAILY RF: 0 lorazepam 0.5 mg Tablet 0.5 mg PO DAILY PRN (Reason: Anxiety) RF: 0 sertraline [Zoloft] 20 mg/mL Concentrate 100 mg PO DAILY RF: 0 melatonin 5 mg Tablet 10 mg PO BEDTIME RF: 0 levetiracetam 250 mg Tablet 250 mg PO BID 30 Days Qty: 60 RF: 0 quetiapine 25 mg tablet 25 mg PO BID RF: 0
[2021-03-27 20:00] VITALS: BP 117/62; PULSE 64; RESP 16; TEMP 36.7; O2SAT 99
[2021-03-27] MEDS: Erythromycin Base 0.5% Oph Oin 1 GM TUBE 1 CM EYE-RIGHT (20:16)
[2021-03-27] MEDS: Nystatin Powder 15 GM BOTTLE 1 APPL TOPICAL (20:16)
[2021-03-27 20:17] LABS: MANUAL DIFF FLAG NO
[2021-03-27] MEDS: 0.9 % Sodium Chloride 500 ML IV (20:17)
[2021-03-27 20:18] LABS: Basophils Percent Auto 0.2 % (0-2); Eosinophils Absolute Auto 0.1 X10*3/uL (0.0-0.4); Eosinophils Percent Auto 1.5 % (0-4); Hemoglobin 13.6 g/dl (14.0-18.0); Imm Gran Abs Auto 0.02 X10*3/uL (0.00-0.03); Imm Gran Pct Auto 0.2 % (0.0-0.4); Lymphocytes Absolute Auto 1.2 X10*3/uL (1.2-4.9); Lymphocytes Percent Auto 13.7 % (20-40); Mean Corpuscular Hemoglobin 28.1 pg (27.0-33.0); Mean Corpuscular Volume 82.6 fL (80-98); Mean Platelet Volume 8.8 fL (9.4-12.4); Monocytes Absolute Auto 0.7 X10*3/uL (0.1-1.2); Monocytes Percent Auto 8.2 % (2-11); Neutrophils Absolute Auto 6.7 X10*3/uL (2.0-8.3); Neutrophils Percent Auto 76.2 % (45-73); Platelet Count 285 X10*3/uL (160-400); Red Blood Count 4.84 X10*6/uL (4.60-5.80); Red Cell Distribution Width 14.5 % (11.0-16.0); White Blood Count 8.8 X10*3/uL (4.8-10.8)
[2021-03-27 20:33] LABS: Appearance Urine CLEAR; Color Urine YELLOW; Glucose Urine UA 250 MG/DL (NEG); Leukocyte Esterase Urine NEG (NEG); Nitrite Urine NEG (NEG); Specific Gravity - Urine >= 1.030 (1.005-1.025); Urine Blood NEG (NEG); Urine Ketones NEG (NEG); Urine Protein NEG (NEG-TRACE)
[2021-03-27 20:33] LABS: COVID-19 Test Negative (Negative)
[2021-03-27 20:37] LABS: Alanine Aminotransferase 21 U/L (0-40); Albumin Level 3.7 g/dL (3.5-5.0); Alkaline Phosphatase 167 U/L (39-117); Anion Gap 12 (12-20); Aspartate Amino Transferase 14 U/L (5-37); Bilirubin Total 0.7 mg/dL (0.0-1.0); Blood Urea Nitrogen 19 mg/dL (9-16); Calcium 9.3 mg/dL (8.4-10.2); Carbon Dioxide 26 mmol/L (22-29); Chloride 109 mmol/L (96-108); Creatinine Clr Calc Pharmacy 48.1; Estimated Glomerular Filt Rate > 60; Glucose Random 97 mg/dL (60-115); Potassium 4.6 mmol/L (3.3-5.1); Sodium 142 mmol/L (135-145); Total Protein 6.7 g/dL (6.5-8.0)
[2021-03-27 20:52] LABS: Ammonia 28 umol/L (13-55)
--- NOTE | 2021-03-27 20:55 | PC.NURSE ---
When pt initially assessed by this RN and Dr Barber, both provider and t/w note a stage 1 pressure ulcer to pt's coccyx. Pt's daughter at bedside, instructed to encourage repositioning frequently as pt is very rigid with his movements and tends to remain in same position depsite multiple attempts by this RN to encourage repositioning. Pt acting at baseline per pt which is minimally verbal, entirely disoriented. Pt with seizure pads on siderails x 2. Pt stretcher in low locked position, call lee within reach of daughter. Pt with red fall prevention socks, red fall alert wrist band, red fall star posted outside of room. Awaiting lab/imaging results at this time.
[2021-03-27 21:44] VITALS: BP 112/67; PULSE 60; RESP 15; TEMP 524.4; TEMP 976; O2SAT 97
--- NOTE | 2021-03-27 21:45 | PC.NURSE ---
Pt's daughter at bedside, different daughter than previously, requesting update on plan. This RN explains to daughter that pt has order for CM consult but daughter requesting to talk to provider to discuss why CM and what options they may offer. This RN to notify provider of daughter's requests.
== END 2021-03-27 22:50 | disposition home or self-care (01) ==
PROVIDERS: Emergency Provider Emergency Medicine
DX: R56.9 Unspecified convulsions (principal); G30.9 Alzheimer's disease, unspecified; F02.80 Dementia in other diseases classified elsewhere, unspecified severity, without behavioral disturbance, psychotic disturbance, mood disturbance, and anxiety; R29.810 Facial weakness; N48.1 Balanitis; H10.9 Unspecified conjunctivitis; L89.151 Pressure ulcer of sacral region, stage 1; Z20.822 Contact with and (suspected) exposure to COVID-19; R53.1 Weakness; I10 Essential (primary) hypertension; E78.5 Hyperlipidemia, unspecified; Z79.899 Other long term (current) drug therapy; Z79.02 Long term (current) use of antithrombotics/antiplatelets
CPT/HCPCS: 36415; 70450; 71045; 80053; 81003; 82140; 82947; 85025; 87635; 93005; 96361; 96374; 99284